=== PATIENT | female | born 1955 | race Caucasian/White ===

== ENCOUNTER → 2019-08-13 09:38 | Outpatient (BNVA) | payer MEDICARE, SELFPAY | PROVIDERS: PCP Nurse Practitioner Family; Visit Provider Nurse Practitioner Family | DX: S99.911A Unspecified injury of right ankle, initial encounter (principal); S81.012A Laceration without foreign body, left knee, initial encounter; X58.XXXA Exposure to other specified factors, initial encounter | CPT/HCPCS: 73610 ==

== ENCOUNTER → 2021-06-21 14:52 | Outpatient (BNVA) | payer MEDICARE, SELFPAY | PROVIDERS: PCP Nurse Practitioner Family; Visit Provider Family Medicine | DX: I25.10 Atherosclerotic heart disease of native coronary artery without angina pectoris (principal); N32.81 Overactive bladder; N39.3 Stress incontinence (female) (male); F41.1 Generalized anxiety disorder; I25.118 Atherosclerotic heart disease of native coronary artery with other forms of angina pectoris; F51.05 Insomnia due to other mental disorder; F99 Mental disorder, not otherwise specified; Z13.1 Encounter for screening for diabetes mellitus; Z13.220 Encounter for screening for lipoid disorders; Z13.6 Encounter for screening for cardiovascular disorders; Z63.6 Dependent relative needing care at home; I10 Essential (primary) hypertension | CPT/HCPCS: 80053; 80061 ==

== ENCOUNTER 2022-01-18 13:38 | Observation (INO) | payer MEDICARE, SELFPAY ==
--- NOTE | 2022-01-18 13:53 | ED_ITS ---
HPI - Chest Pain General: Chief Complaint: Chest Pain Stated Complaint: Chest pain Time Seen by Provider: 01/18/22 13:52 History of Present Illness: Ms. Moreno is a 66-year-old lady with significant past medical history of hypertension, former tobacco use, CAD with prior IN presenting to the emergency department due to chest pain. She reports no history of chest pain with exception of prior heart attack until 4 days ago. Symptom onset was random not correlating with any particular time or activity. Since 4 days ago she has had multiple times per day episodes of substernal chest pain with radiation of the arms and back associated with lightheadedness and shortness of breath and nausea. She describes this as feeling similar to her prior heart attack. Current symptom intensity is very mild however at worst symptoms were moderate to severe. Symptoms improved with nitro until today when they persisted. No other specific changes in health, exacerbating, or alleviating factors identified. Onset (ago): day(s) Timing of current episode: episodic Prior episodes: Yes Onset: during rest and during exertion Pain location: substernal Pain radiation: right arm, left arm and back Severity: moderate Quality: heaviness Relieving factors: nitroglycerin and rest Exacerbating factors: nothing Associated symptoms: Reports dyspnea, nausea and other Treatment prior to arrival: nitroglycerin Review of Systems General: Reports: 10 or more systems reviewed and unremarkable except in HPI and below Resp: Reports: dyspnea GI: Reports: nausea PFSH ED PFSH: Medical History CAD (coronary artery disease) Hypertension Surgical History H/O: hysterectomy Family History Mother Diabetes Cancer OVARIAN AND BRAIN CANCER Social History Smoking and tobacco status: former smoker Physical Exam Const: COMMON NORMALS: alert GENERAL APPEARANCE: cooperative and well developed HENMT: COMMON NORMALS: normocephalic and atraumatic HEAD & SCALP: normocephalic and atraumatic Eye: COMMON NORMALS: conjunctivae normal CONJUNCTIVA: Yes conjunctivae n ormal SCLERA: sclerae normal Neck/C-Spine: COMMON NORMALS: supple GENERAL: Yes trachea midline Resp: COMMON NORMALS: clear to auscultation bilaterally EFFORT & INSPECTION: Yes able to speak in complete sentences AUSCULTATION: clear to auscultation bilaterally Cardio: COMMON NORMALS: regular rate and regular rhythm RATE: regular rate RHYTHM: regular rhythm GI: COMMON NORMALS: Soft to palpation PALPATION: Yes Soft to palpation and No Tenderness to palpation present (GI) PERCUSSION: normal to percussion Extremity: GENERAL: Yes normal exam except as noted and No edema Neuro: COMMON NORMALS: moves all extremities SENSORIUM/ORIENTATION: Yes alert and No Orientation impaired Psych: COMMON NORMALS: mental status grossly normal and Normal thought process present THOUGHT PROCESS: Normal thought process present Course ED course: - Patient was seen and evaluated by me at bedside - Patient placed on cardiac monitors, IV access obtained - Initial evaluation notable for exam as above - Labs and xrays personally interpreted by me. EKG shows sinus rhythm with nonspecific QRS wave abnormalities. -Aspirin given. Analgesia given. - Labs notable for no significant hematologic abnormality. Metabolic panel with perhaps mild evidence of dehydration. Delta troponin negative. - Imaging notable for no lobar consolidation or pneumothorax. - Upon serial reexamination after treatment the patient was mildly improved - Based on patient history, evaluation, and testing as interpreted the most likely cause of the patient's condition is chest pain. Patient is not low risk by heart score. - The results of ED evaluation were discussed with the patient including plan for admission due to requirement for level of care not available if discharged to prevent significant worsening/deterioration. - Admitting service was contacted and Dr Martinez with the hospitalist service agreed to admit the patient - Patient was admitted without further deterioration or significant events. Note: Click bubbles or prepopulated traore in note writing are used for assistance with data collection and billing and are inherently more limited than narrative and other text portions of this note. Please use narrative for additional clinical history and defer to narrative/free test for any case of contradictory information. If information appears in only free text or click bubble it should be considered present or absent as reported. Please contact note residential mortgage underwriter for clarifications of clinical information or contradictory information. MDM is a brief summary, contradictory or erroneous seeming information should be clarified and full note should be reviewed. Vital Signs: Vital signs: Vital Signs Temperature 97.8 F 01/19/22 04:00 Pulse Rate 65 01/19/22 13:14 Respiratory Rate 14 01/19/22 13:14 Blood Pressure 118/74 01/19/22 13:14 Pulse Oximetry 98 01/19/22 13:14 MDM - Chest Pain Medical Decision Making 66-year-old lady presenting with chest pain. EKG without STEMI. Negative delta troponin. No clear cause identified on ED evaluation. Not low risk by heart score. Admitted for further cardiac evaluation. Medical Records I reviewed the patient's medical records. Lab Data I reviewed the patient's lab results. : 01/19/22 02:54 01/19/22 02:54 Radiology Impressions Chest X-Ray 01/18/22 14:02 IMPRESSION: No acute findings. Laboratory Results WBC 9.3 10^3/uL (4.0-10.0) 01/18/22 14:09 RBC 4.84 10^6/uL (4.1-5.3) 01/18/22 14:09 Hgb 14.1 g/dL (11.5-15.3) 01/18/22 14:09 Hct 42.4 % (37.0-47.0) 01/18/22 14:09 MCV 87.6 fl (81-99) 01/18/22 14:09 MCH 29.1 pg (28.0-34.0) 01/18/22 14:09 MCHC 33.3 g/dL (30.0-36.0) 01/18/22 14:09 RDW 13.1 % (12.1-15.1) 01/18/22 14:09 Plt Count 348 10^3/cmm (130-400) 01/18/22 14:09 MPV 10.3 fL (7.4-10.4) 01/18/22 14:09 Neut % (Auto) 61.0 % 01/18/22 14:09 Lymph % (Auto) 27.8 % 01/18/22 14:09 Sampson % (Auto) 7.5 % 01/18/22 14:09 Eos % (Auto) 2.4 % 01/18/22 14:09 Baso % (Auto) 1.0 % 01/18/22 14:09 Neut # (Auto) 5.66 10^3/uL (1.8-7.7) 01/18/22 14:09 Lymph # (Auto) 2.6 10^3/uL (0.8-4.8) 01/18/22 14:09 Sampson # (Auto) 0.7 10^3/uL (0.2-0.9) 01/18/22 14:09 Eos # (Auto) 0.2 10^3/uL (0.0-0.8) 01/18/22 14:09 Baso # (Auto) 0.1 10^3/uL (0.0-0.1) 01/18/22 14:09 Nucleated RBC % (auto) 0 % 01/18/22 14:09 Nucleated RBCs # 0.0 /100WBC 01/18/22 14:09 PT 12.30 SECONDS (12.1-14.9) 01/18/22 14:09 INR 0.89 (0.8-1.2) 01/18/22 14:09 APTT 30.2 SECONDS (23.9-36.7) 01/18/22 14:09 Sodium 136 mmol/L (136-145) 01/18/22 14:09 Potassium 3.8 mmol/L (3.5-5.1) 01/18/22 14:09 Chloride 100 mmol/L (98-107) 01/18/22 14:09 Carbon Dioxide 21 mmol/L (22-29) L 01/18/22 14:09 Anion Gap 18.8 (5-19) 01/18/22 14:09 BUN 17 mg/dL (8-23) 01/18/22 14:09 Creatinine 1.0 mg/dL (0.5-0.9) H 01/18/22 14:09 GFR Calculation 55.1 mL/min (90-130) L 01/18/22 14:09 Glucose 118 mg/dL (65-115) H 01/18/22 14:09 Estimat Average Glucose 140 01/18/22 14:09 Hemoglobin A1c 6.5 % (4.0-6.0) H 01/18/22 14:09 Calculated Osmolality 285 mOsm/kg (285-295) 01/18/22 14:09 Calcium 9.7 mg/dL (8.5-10.5) 01/18/22 14:09 Magnesium 2.3 mg/dL (1.7-2.3) 01/18/22 16:13 Total Bilirubin 0.3 mg/dL (0.15-1.2) 01/18/22 14:09 AST 18 U/L (0-32) 01/18/22 14:09 ALT 25 U/L (0-33) 01/18/22 14:09 Alkaline Phosphatase 80 IU/L (35-105) 01/18/22 14:09 Troponin T Baseline 6 ng/L (0-10) 01/18/22 14:09 Troponin T 120 Minute 6.34 ng/L (0-10) 01/18/22 16:13 Delta Troponin T 0.34 ABS# (0-10) 01/18/22 16:13 Troponin T Hi Sens 6Hr 6.00 ng/L (0-10) 01/18/22 19:51 Troponin T Hi Sens 6Hr Delta 0 ng/L (0-12) 01/18/22 19:51 NT-Pro-B Natriuret Pep 140 pg/mL (0-125) H 01/18/22 16:13 Total Protein 7.6 g/dL (6.6-8.7) 01/18/22 14:09 Albumin 4.4 g/dL (3.5-5.2) 01/18/22 14:09 Globulin 3.2 g/dL (1.3-4.6) 01/18/22 14:09 Triglycerides 191 mg/dL (0-150) H 01/18/22 16:13 Cholesterol 239 mg/dL (0-200) H 01/18/22 16:13 LDL Cholesterol, Calc 161 mg/dL (50-129) H 01/18/22 16:13 HDL Cholesterol 40 mg/dL (60-100) L 01/18/22 16:13 LDL/HDL Ratio 4.03 RATIO (0.00-3.22) H 01/18/22 16:13 Cholesterol/HDL Ratio 5.98 mg/dL (0.0-4.40) H 01/18/22 16:13 Lipase 53 U/L (13-60) 01/18/22 14:09 TSH 4.28 uIU/mL (0.27-4.20) H 01/18/22 16:13 Discharge Plan Discharge Patient Disposition: Placed in Observation Admit Provider: Brent Martinez Clinical Impression: Chest pain Discharge Diet: Diabetic Discharge Activity: Resume usual activity Coding Level of Care Code ED Gravure Press Set Up Operator for Chg Fwd Exam Comprehensive
[2022-01-18 13:58] VITALS: BP 144/70; PULSE 66; RESP 25; TEMP 36.6; O2SAT 96; BMI 29.4
--- NOTE | 2022-01-18 14:02 | ECG_ITS ---
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 Measurements Intervals Shirley Rate: 61 P: 51 MD: 140 QRS: 22 QRSD: 73 T: 58 QT: 380 QTc: 385 Interpretive Statements SINUS RHYTHM INTERPRETATION BASED ON A DEFAULT AGE OF 40 YEARS No previous ECG available for comparison Electronically Signed On 01-18-2022 16:53:14 CDT by Ridge Núñez M.D. [id number]
--- NOTE | 2022-01-18 14:02 | XRR_ITS ---
PROCEDURE INFORMATION: Exam: XR Chest Exam date and time: 01/18/2022 2:14 PM Age: 66 years old Clinical indication: Angina pectoris; Patient HX: Chest pain x 4 days. Has been taking nitro. Pains have gotten zone manager but has not subsided. Pain was at a 10 and is currently sitting at a 1; Additional info: Cp TECHNIQUE: Imaging protocol: Radiologic exam of the chest. Views: 1 view. COMPARISON: No relevant prior studies available. FINDINGS: Lungs: Calcified granuloma left lower lobe. The lungs are otherwise clear. No consolidation. Pleural spaces: Unremarkable. No pleural effusion. No pneumothorax. Heart/Mediastinum: Unremarkable. No cardiomegaly. Bones/joints: Unremarkable. XR/XR chest 1V portable [id number] IMPRESSION: No acute findings.
--- NOTE | 2022-01-18 14:05 | PC.NURSE ---
pt placed on continuous spo2, nibp, and cm.
[2022-01-18 14:17] LABS: Basophils # 0.1 10^3/uL (0.0-0.1); Eosinophils # 0.2 10^3/uL (0.0-0.8); Eosinophils % 2.4 %; Hematocrit 42.4 % (37.0-47.0); Hemoglobin 14.1 g/dL (11.5-15.3); Lymphocytes # 2.6 10^3/uL (0.8-4.8); Lymphocytes % 27.8 %; Mean Corpuscular HGB Conc 33.3 g/dL (30.0-36.0); Mean Corpuscular Hemoglobin 29.1 pg (28.0-34.0); Mean Corpuscular Volume 87.6 fl (81-99); Mean Platelet Volume 10.3 fL (7.4-10.4); Monocytes # 0.7 10^3/uL (0.2-0.9); Monocytes % 7.5 %; Neutrophils # 5.66 10^3/uL (1.8-7.7); Nucleated Red Blood Cells % 0 %; Platelet Count 348 10^3/cmm (130-400); Red Blood Count 4.84 10^6/uL (4.1-5.3); Red Cell Distribution Width 13.1 % (12.1-15.1); White Blood Count 9.3 10^3/uL (4.0-10.0)
[2022-01-18] MEDS: aspirin 81 mg Chew Tablet 324 MG PO (14:29)
[2022-01-18 14:37] LABS: INR 0.89 (0.8-1.2)
[2022-01-18 14:38] LABS: Partial Thromboplastin Time 30.2 SECONDS (23.9-36.7)
[2022-01-18 14:39] LABS: Troponin(5th) Baseline 6 ng/L (0-10)
[2022-01-18 14:48] LABS: Alanine Aminotransferase 25 U/L (0-33); Albumin Level 4.4 g/dL (3.5-5.2); Alkaline Phosphatase 80 IU/L (35-105); Anion Gap 18.8 (5-19); Aspartate Amino Transferase 18 U/L (0-32); Blood Urea Nitrogen 17 mg/dL (8-23); Calcium 9.7 mg/dL (8.5-10.5); Carbon Dioxide 21 mmol/L (22-29); Chloride 100 mmol/L (98-107); Globulin 3.2 g/dL (1.3-4.6); Glomerular Filtration Rate 55.1 mL/min (90-130); Glucose 118 mg/dL (65-115); Lipase 53 U/L (13-60); NT Pro B Type Natriuretic Pept 142 pg/mL (0-125); Osmolality Calculated 285 mOsm/kg (285-295); Potassium 3.8 mmol/L (3.5-5.1); Sodium 136 mmol/L (136-145); Total Bilirubin 0.3 mg/dL (0.15-1.2); Total Protein 7.6 g/dL (6.6-8.7)
--- NOTE | 2022-01-18 16:02 | ECG_ITS ---
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 Measurements Intervals Astor Rate: 51 P: 42 SD: 155 QRS: 3 QRSD: 79 T: 43 QT: 437 QTc: 404 Interpretive Statements SINUS BRADYCARDIA Compared to ECG 01/18/2022 13:57:16 Sinus rhythm no longer present Electronically Signed On 01-18-2022 16:59:10 CDT by Ridge Núñez M.D. [id number]
--- NOTE | 2022-01-18 16:05 | PC.PHAR ---
pt states she takes care of her own medications-pts phone number is [phone]-pt states she took no meds today
[2022-01-18] MEDS: lidocaine 2% viscous 15 ML, aluminum-mag hydrox-simethicon 30 ML, sucralfate oral liq 1 GM PO (16:35)
[2022-01-18] MEDS: fentaNYL 50 mcg/mL INJ 2mL IVP (16:36)
[2022-01-18 16:47] LABS: Troponin 5 2HR 6.34 ng/L (0-10)
[2022-01-18 17:11] LABS: Troponin 5 2HR Delta 0.34 ABS# (0-10)
--- NOTE | 2022-01-18 17:38 | PM.HP ---
Providers/Chief Complaint Primary Care Provider: Melani Pedro MD Chief Complaint: Chest pain History of Present Illness Miriam Moreno is a 66 year old female with a past medical history of angina, hypertension, who presents [facility] due to 4-day history of chest pain. Patient does not have for the last 4 days she has had substernal chest pain, radiating down the left shoulder, to her back, lasting a few minutes, becoming more severe, improving with nitroglycerin, she has had a history of angina in the past, has been prescribed nitroglycerin, he tells me that with the nitroglycerin the chest pain resolves. Denies any shortness of breath with exertion, denies any orthopnea, no paroxysmal nocturnal dyspnea, no diaphoresis. No recent travel, no history of DVT or pulmonary embolism. No calf pain, no calf swelling. Review of Systems Const: Denies: fever(s) Eyes: Denies: change in vision ENMT: Denies: nasal congestion Resp: Denies: dyspnea or non-productive cough GI: Denies: abdominal pain, nausea, vomiting or hematemesis Musc: Denies: back pain Skin/Breast: Denies: rash Medications/Allergies Home Medications Medication Instructions Recorded Confirmed Last Taken Type nitroglycerin 0.4 mg sublingual 0.4 mg SUBLINGUAL Q5M PRN #25 tab 06/21/21 01/18/22 01/17/22 19:00 Rx tablet oxybutynin chloride 5 mg 5 mg PO QAM 01/18/22 01/18/22 01/17/22 History tablet,extended release 24 hr sertraline 25 mg tablet (Zoloft) 25 mg PO QAM 01/18/22 01/18/22 01/17/22 History Allergies Allergy/AdvReac Type Severity Reaction Status Date / Time codeine Allergy Unknown UNKNOWN Verified 01/18/22 16:02 erythromycin base Allergy Unknown UNKNOWN Verified 01/18/22 16:02 Penicillins Allergy Unknown UNKNOWN Verified 01/18/22 16:02 amoxicillin Allergy unknown Verified 01/18/22 16:02 PFSH Acute PFSH: Medical History CAD (coronary artery disease) Hypertension Surgical History H/O: hysterectomy Family History Mother Diabetes Cancer OVARIAN AND BRAIN CANCER Social History Smoking and tobacco status: former smoker Vitals/I&O/Wt Last Vital Signs Temp 97.8 F 01/18/22 13:58 Pulse 66 01/18/22 13:58 Resp 25 H 01/18/22 13:58 BP 144/70 01/18/22 13:58 Pulse Ox 96 01/18/22 13:58 Weight last 48 hrs Weight 73.028 kg Physical Exam Const: COMMON NORMALS: no acute distress and patient oriented x3 HENMT: COMMON NORMALS: normocephalic HEAD & SCALP: normocephalic Eye: COMMON NORMALS: Equal, round and reactive pupils present and EOMs intact bilaterally Neck/C-Spine: COMMON NORMALS: no JVD Resp: COMMON NORMALS: normal respiratory effort, No retractions, No use of accessory muscles and clear to auscultation bilaterally AUSCULTATION: clear to auscultation bilaterally Cardio: COMMON NORMALS: no JVD, regular rate, regular rhythm, S1 normal heart sound present and S2 normal heart sound present RATE: regular rate RHYTHM: regular rhythm HEART SOUNDS: S1 normal heart sound present and S2 normal heart sound present GI: COMMON NORMALS: Normal to inspection, nondistended, normoactive bowel sounds present, Soft to palpation, non-tender, No hepatosplenomegaly present, no masses and no bruits PALPATION: Yes Soft to palpation and Yes No hepatosplenomegaly present Extremity: COMMON NORMALS: capillary refill normal, no clubbing, cyanosis or edema, no calf tenderness and no pedal edema Neuro: COMMON NORMALS: patient oriented x3, CN's II-XII intact bilaterally, moves all extremities and no focal motor deficits Psych: COMMON NORMALS: mental status grossly normal Data : 01/18/22 14:09 01/18/22 14:09 A&P Assessment and plan (1) Chest pain: Status: Acute (2) Hypertension: Status: Acute Qualifiers: Hypertension type: primary hypertension Qualified Code(s): I10 - Essential (primary) hypertension (3) MELA (generalized anxiety disorder): Status: Acute Plan Chest pain -Serial EKGs, serial troponins, telemetry monitoring -Monitor for chest pain -Aspirin, statin, Coreg -Nitro as needed for chest pain -TSH, mag, lipid panel -Cardiac echo -N.p.o. midnight, cardiac stress test tomorrow morning -Cardiac diet -Protonix GI prophylaxis -Lovenox for DVT prophylaxis -Full code Attestations Medical Necessity Statement*: Patient requires hospitalization, outpatient with observation, chest pain Coding Level of Care Code Acute Talent Acquisition Operations Manager for [facility] Fwd Diagnoses Chest pain R07.9 Hypertension I10 Hypertension type: primary hypertension MELA (generalized anxiety disorder) F41.1
[2022-01-18 18:27] LABS: Chol HDL Ratio 5.98 mg/dL (0.0-4.40); Cholesterol 239 mg/dL (0-200); HDL Cholesterol 40 mg/dL (60-100); LDL Cholesterol Calculated 161 mg/dL (50-129); LDL HDL Ratio 4.03 RATIO (0.00-3.22); Magnesium 2.3 mg/dL (1.7-2.3); NT Pro B Type Natriuretic Pept 140 pg/mL (0-125); Thyroid Stimulating Hormone 4.28 uIU/mL (0.27-4.20); Triglycerides 191 mg/dL (0-150)
--- NOTE | 2022-01-18 19:06 | PC.NURSE ---
REPORT GIVEN TO SUSANNAH PRIDE ASSUMED CARE.
--- NOTE | 2022-01-18 19:20 | PC.NURSE ---
Attempted report @192, no answer on med surg
[2022-01-18 19:36] VITALS: BP 134/85; PULSE 70; RESP 20; O2SAT 98
[2022-01-18 20:26] LABS: Troponin 5 6HR Delta 0 ng/L (0-12)
[2022-01-18 21:10] VITALS: BP 138/68; PULSE 53; PULSE 54; RESP 15; O2SAT 93
--- NOTE | 2022-01-18 21:10 | USCV_ITS ---
Miriam Moreno Age: 66 Gender: F : 1955 Exam Date: 01/18/2022 22:28 Ordering Phys: Brent Martinez MD Technologist: JEN [place]am [place] [facility] [place]: chest pain x 4 days. No hx cardiac intervention BP: 134 / 85 HR: 70 Rhythm: Sinus Technical Quality: Adequate MEASUREMENTS (Male / Female) Normal Values 2D ECHO LV Diastolic Diameter PLAX 4.5 cm 4.2 - 5.9 / 3.9 - 5.3 cm LV Systolic Diameter PLAX 2.9 cm IVS Diastolic Thickness 1.2 cm 0.6 - 1.0 / 0.6 - 0.9 cm IVS Systolic Thickness 1.7 cm LVPW Diastolic Thickness 1.0 cm 0.6 - 1.0 / 0.6 - 0.9 cm LVPW Systolic Thickness 1.3 cm LVOT Diameter 1.8 cm LV Ejection Fraction 2D Teich 66.1 % LV Ejection Fraction MOD 2C 56.5 % LV Ejection Fraction 2C AL 59.7 % LA Diameter 3.7 cm LA Width 4.4 cm LA Height 4.8 cm RA Width 4.3 cm RA Height 4.4 cm Aorta at Sinotubular Diameter 3.1 cm IVC Diameter 1.9 cm M-MODE Aortic Annulus Diameter 2.8 cm LA Ao Ratio MM 1.4 MV E Point Septal Separation 0.1 cm DOPPLER AV Peak Velocity 135.0 cm/s LVOT Peak Velocity 97.0 cm/s AV Area Cont Eq vti 2.2 cm squared AV Area Cont Eq pk 1.9 cm squared MV Peak Velocity 88.0 cm/s MV Area PHT 3.3 cm squared Mitral E to A Ratio 1.2 MV E' Velocity 47.5 cm/s Mitral E to MV E' Ratio 8.6 Mitral E to LV E' Lateral Ratio 6.4 Mitral E to LV E' Septal Ratio 13.1 TR Peak Velocity 244.6 cm/s TR Peak Gradient 23.9 mmHg TR Mean Velocity 251.3 cm/s TR Mean Gradient 25.3 mmHg TR Velocity Time Integral 0.0 cm TV Peak E Velocity 39.0 cm/s Right Atrial Pressure 5.0 mmHg Pulmonary Artery Systolic Pressu 28.9 mmHg PV Peak Velocity 95.0 cm/s RV Acceleration Time 0.2 s RV Ejection Time 0.5 s RV AcT/ET 0.4 FINDINGS Left Ventricle Normal left ventricular size. LV systolic function is normal with EF of 55-60%. No regional wall motion abnormalities. Right Ventricle The right ventricle is normal in size and function. Right Atrium The right atrium is normal in size. Left Atrium The left atrium is normal in size. Mitral Valve Structurally normal mitral valve without significant stenosis or prolapse. There is mild mitral regurgitation. Aortic Valve Structurally normal aortic valve without significant sclerosis or stenosis. There is no aortic regurgitation. Tricuspid Valve Structurally normal tricuspid valve without significant stenosis. Mild tricuspid regurgitation. Pulmonary artery systolic pressure is normal. Pulmonic Valve Not well visualized . Trace pulmonic regurgitation Pericardium Normal pericardium without effusion. Aorta Normal ascending aorta dimension. IVC CONCLUSIONS LV systolic function is normal with EF 55-60%. Mild mitral regurgitation is seen. Mild tricuspid regurgitation is seen. Trace pulmonic regurgitation No comparison studies are available. Og Velásquez MD (Electronically Signed) Final Date: 19 January 2022 10:23 S
[2022-01-18 22:00] VITALS: PULSE 58
[2022-01-18 22:12] LABS: Estmated Average Glucose 140; Hemoglobin A1C 6.5 % (4.0-6.0)
[2022-01-18] MEDS: carvedilol 3.125 mg Tablet PO (22:15)
[2022-01-18] MEDS: atorvastatin 40 mg Tablet PO (22:16)
[2022-01-18] MEDS: enoxaparin 40 mg/0.4 mL Syringe SUBCUT (22:16)
[2022-01-19] VITALS (7 sets, daily range): BP systolic 115–138; BP diastolic 59–74; PULSE 56–70; RESP 14–21; TEMP 36.6; O2SAT 93–98
[2022-01-19 03:07] LABS: Basophils # 0.1 10^3/uL (0.0-0.1); Basophils % 0.9 %; Eosinophils # 0.2 10^3/uL (0.0-0.8); Eosinophils % 2.7 %; Hematocrit 36.6 % (37.0-47.0); Hemoglobin 12.8 g/dL (11.5-15.3); Lymphocytes # 2.9 10^3/uL (0.8-4.8); Lymphocytes % 33.2 %; Mean Corpuscular Hemoglobin 29.2 pg (28.0-34.0); Mean Corpuscular Volume 83.4 fl (81-99); Mean Platelet Volume 10.9 fL (7.4-10.4); Monocytes # 0.5 10^3/uL (0.2-0.9); Monocytes % 6.2 %; Neutrophils # 4.96 10^3/uL (1.8-7.7); Neutrophils % 56.7 %; Nucleated Red Blood Cells % 0 %; Platelet Count 265 10^3/cmm (130-400); Red Blood Count 4.39 10^6/uL (4.1-5.3); Red Cell Distribution Width 13.2 % (12.1-15.1); White Blood Count 8.8 10^3/uL (4.0-10.0)
[2022-01-19 03:31] LABS: Albumin Level 3.9 g/dL (3.5-5.2); Alkaline Phosphatase 68 IU/L (35-105); Blood Urea Nitrogen 17 mg/dL (8-23); Calcium 8.7 mg/dL (8.5-10.5); Carbon Dioxide 20 mmol/L (22-29); Chloride 103 mmol/L (98-107); Globulin 3.1 g/dL (1.3-4.6); Glomerular Filtration Rate 71.3 mL/min (90-130); Glucose 99 mg/dL (65-115); Magnesium 2.2 mg/dL (1.7-2.3); Osmolality Calculated 282 mOsm/kg (285-295); Phosphorus 3.7 mg/dL (2.5-4.5); Sodium 135 mmol/L (136-145); Total Bilirubin 0.3 mg/dL (0.15-1.2)
[2022-01-19 03:37] LABS: Alanine Aminotransferase 24 U/L (0-33); Anion Gap 16.3 (5-19); Aspartate Amino Transferase 23 U/L (0-32); Potassium 4.3 mmol/L (3.5-5.1)
[2022-01-19] MEDS: oxybutynin chloride XL 5 MG TABLET PO (06:31)
[2022-01-19] MEDS: sertraline 50 mg Tablet 25 MG PO (06:31)
--- NOTE | 2022-01-19 06:59 | ECG_ITS ---
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 Interpretive Statements NAME OF STUDY: LEXISCAN SESTAMIBI STRESS TEST INDICATION: [Chest Pain] Procedure: At the baseline, the blood pressure was 114/72 mmHg with a heart rate of 59 bpm. The electrocardiogram showed sinus bradycardia, normal axis with normal ST and T's. The Lexiscan was infused over a period of 20 seconds. A total of 0.4 mg of Lexiscan was infused. The stress phase was continued for a total of 5 minutes. Heart rate was at the end of stress phase was 68 bpm and a blood pressure of 103/57 mmHg. The EKG at the peak infusion revealed since normal sinus rhythm with no significant ST-T wave changes. Sestamibi was injected 20 seconds after the Lexiscan infusion. Blood pressure at the end of recovery phase was 115/59 mmHg with a heart rate of 62 bpm. Conclusion: 1. Normal EKG response to Lexiscan infusion 2. No Lexiscan induced chest pain or cardiac arrhythmia. 3. Normal blood pressure and heart rate response. 4. Sestamibi/sestamibi perfusion scan pending; see separate report. Electronically Signed On 02-05-2022 12:06:50 CDT by Og Velásquez M.D. [id number]
[2022-01-19] MEDS: regadenoson 0.4 Mg/5 ml Syringe IVP (07:42)
[2022-01-19] MEDS: ondansetron 2 mg/ML SDV 2 mL 4 MG IVP (07:43)
[2022-01-19] MEDS: aspirin 81 mg EC Tablet PO (10:13)
[2022-01-19] MEDS: pantoprazole DR 40 mg Tablet PO (10:13)
--- NOTE | 2022-01-19 11:50 | PM.DCS ---
Discharge Providers Date of Admission: 01/18/22 21:10 Date of Discharge: January 19, 2022 Attending Provider at Admission: Brent Martinez MD Attending Provider at Discharge: Brent Martinez MD Primary Care Provider: Melani Pedro MD Diagnoses at Discharge Discharge Diagnosis (1) Chest pain: Status: Acute (2) Hypertension: Status: Acute Qualifiers: Hypertension type: primary hypertension Qualified Code(s): I10 - Essential (primary) hypertension (3) MELA (generalized anxiety disorder): Status: Acute Reason for Visit Reason for Visit: Chest pain Hospital Course Hospital Course This is a 66-year-old female who presents [facility] for chest pain, patient was admitted to [facility] chest pain, no significant ST-T wave changes seen on EKG, no significant delta troponin, no recurrent chest pain during her hospitalization, echocardiogram and work-up as below cardiac echocardiogram ?LV systolic function is normal with EF 55-60%. ?Mild mitral regurgitation is seen. ?Mild tricuspid regurgitation is seen. ?Trace pulmonic regurgitation ?No comparison studies are available. cardia stress test ?There is a small sized, fixed perfusion defect in apical lateral wall. 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 ? (calculated via Gated SPECT) ? Stress Image LV EF (%):? ? 74 ? Stress EDV (mL):68 ? TID:? 0.85 ? Stress ESV (mL):18 ?FUNCTIONAL FINDINGS: ?There is normal left ventricular systolic function. ?IMPRESSIONS ?1. Abnormal myocardial perfusion imaging with small sized prior infarct seen in ?the left circumflex artery territory. No evidence of ischemia is seen ?2. LV systolic function is normal -No recurrent chest pain, low probability stress test, but did show small sized prior infarct in the left circumflex territory however her EF is 55 to 60% -I have discharged on aspirin, statin, Coreg, nitro as needed for chest pain -If she were to have recurrent chest pain go to emergency room -Follow-up cardiology 1 week -She also has newly diagnosed type 2 diabetes mellitus, discharged on metformin, glucometer, with a follow-up with her primary care in 1 week Discharge Data Studies Completed and Pending Completed Studies During Hospitalization Category Date Time Status Sestamibi Stress Test Request Routine Exams 01/19/22 06:59 Draft XR chest 1V portable [id number] Stat Exams 01/18/22 14:02 Completed NM oh perf SPECT r/s* [id number] Routine Nuc Med 01/19/22 21:10 Completed CV. echo complete* [id number] Routine Ultrasound 01/18/22 21:10 Completed Pending at discharge Category Date Time Status Sestamibi Stress Test Request Routine Exams 01/18/22 21:10 Stop Req Complete Blood Count w/Auto AM LABS Lab 01/20/22 04:00 Ordered Complete Blood Count w/Auto AM LABS Lab 01/21/22 04:00 Ordered Comprehensive Metabolic Panel AM LABS Lab 01/20/22 04:00 Ordered Comprehensive Metabolic Panel AM LABS Lab 01/21/22 04:00 Ordered Magnesium AM LABS Lab 01/20/22 04:00 Ordered Magnesium AM LABS Lab 01/21/22 04:00 Ordered Phosphorus AM LABS Lab 01/20/22 04:00 Ordered Phosphorus AM LABS Lab 01/21/22 04:00 Ordered Radiology Impressions Chest X-Ray 01/18/22 14:02 IMPRESSION: No acute findings. Laboratory Results WBC 8.8 10^3/uL (4.0-10.0) 01/19/22 02:54 RBC 4.39 10^6/uL (4.1-5.3) 01/19/22 02:54 Hgb 12.8 g/dL (11.5-15.3) 01/19/22 02:54 Hct 36.6 % (37.0-47.0) L 01/19/22 02:54 MCV 83.4 fl (81-99) 01/19/22 02:54 MCH 29.2 pg (28.0-34.0) 01/19/22 02:54 MCHC 35.0 g/dL (30.0-36.0) D 01/19/22 02:54 RDW 13.2 % (12.1-15.1) 01/19/22 02:54 Plt Count 265 10^3/cmm (130-400) 01/19/22 02:54 MPV 10.9 fL (7.4-10.4) H 01/19/22 02:54 Neut % (Auto) 56.7 % 01/19/22 02:54 Lymph % (Auto) 33.2 % 01/19/22 02:54 Karnes % (Auto) 6.2 % 01/19/22 02:54 Eos % (Auto) 2.7 % 01/19/22 02:54 Baso % (Auto) 0.9 % 01/19/22 02:54 Neut # (Auto) 4.96 10^3/uL (1.8-7.7) 01/19/22 02:54 Lymph # (Auto) 2.9 10^3/uL (0.8-4.8) 01/19/22 02:54 Karnes # (Auto) 0.5 10^3/uL (0.2-0.9) 01/19/22 02:54 Eos # (Auto) 0.2 10^3/uL (0.0-0.8) 01/19/22 02:54 Baso # (Auto) 0.1 10^3/uL (0.0-0.1) 01/19/22 02:54 Nucleated RBC % (auto) 0 % 01/19/22 02:54 Nucleated RBCs # 0.0 /100WBC 01/19/22 02:54 PT 12.30 SECONDS (12.1-14.9) 01/18/22 14:09 INR 0.89 (0.8-1.2) 01/18/22 14:09 APTT 30.2 SECONDS (23.9-36.7) 01/18/22 14:09 Sodium 135 mmol/L (136-145) L 01/19/22 02:54 Potassium 4.3 mmol/L (3.5-5.1) 01/19/22 02:54 Chloride 103 mmol/L (98-107) 01/19/22 02:54 Carbon Dioxide 20 mmol/L (22-29) L 01/19/22 02:54 Anion Gap 16.3 (5-19) 01/19/22 02:54 BUN 17 mg/dL (8-23) 01/19/22 02:54 Creatinine 0.8 mg/dL (0.5-0.9) 01/19/22 02:54 GFR Calculation 71.3 mL/min (90-130) L 01/19/22 02:54 Glucose 99 mg/dL (65-115) 01/19/22 02:54 Estimat Average Glucose 140 01/18/22 14:09 Hemoglobin A1c 6.5 % (4.0-6.0) H 01/18/22 14:09 Calculated Osmolality 282 mOsm/kg (285-295) L 01/19/22 02:54 Calcium 8.7 mg/dL (8.5-10.5) 01/19/22 02:54 Phosphorus 3.7 mg/dL (2.5-4.5) 01/19/22 02:54 Magnesium 2.2 mg/dL (1.7-2.3) 01/19/22 02:54 Total Bilirubin 0.3 mg/dL (0.15-1.2) 01/19/22 02:54 AST 23 U/L (0-32) 01/19/22 02:54 ALT 24 U/L (0-33) 01/19/22 02:54 Alkaline Phosphatase 68 IU/L (35-105) 01/19/22 02:54 Troponin T Baseline 6 ng/L (0-10) 01/18/22 14:09 Troponin T 120 Minute 6.34 ng/L (0-10) 01/18/22 16:13 Delta Troponin T 0.34 ABS# (0-10) 01/18/22 16:13 Troponin T Hi Sens 6Hr 6.00 ng/L (0-10) 01/18/22 19:51 Troponin T Hi Sens 6Hr Delta 0 ng/L (0-12) 01/18/22 19:51 NT-Pro-B Natriuret Pep 140 pg/mL (0-125) H 01/18/22 16:13 Total Protein 7.0 g/dL (6.6-8.7) 01/19/22 02:54 Albumin 3.9 g/dL (3.5-5.2) 01/19/22 02:54 Globulin 3.1 g/dL (1.3-4.6) 01/19/22 02:54 Triglycerides 191 mg/dL (0-150) H 01/18/22 16:13 Cholesterol 239 mg/dL (0-200) H 01/18/22 16:13 LDL Cholesterol, Calc 161 mg/dL (50-129) H 01/18/22 16:13 HDL Cholesterol 40 mg/dL (60-100) L 01/18/22 16:13 LDL/HDL Ratio 4.03 RATIO (0.00-3.22) H 01/18/22 16:13 Cholesterol/HDL Ratio 5.98 mg/dL (0.0-4.40) H 01/18/22 16:13 Lipase 53 U/L (13-60) 01/18/22 14:09 TSH 4.28 uIU/mL (0.27-4.20) H 01/18/22 16:13 Vitals Last Vital Signs Temp 97.8 F 01/19/22 04:00 Pulse 65 01/19/22 09:19 Resp 21 H 01/19/22 04:00 BP 115/59 01/19/22 07:49 Pulse Ox 98 01/19/22 09:19 Discharge Plan Discharge Patient Disposition: Home Condition: Stable Prescriptions: New (DME) glucometer testing kit See Rx Instructions .Route .MEDSUPPLY Qty: 1 0RF Rx Instructions: Glucometer testing kit, check blood sugars 3 times daily Lancets #100 Strips #100 atorvastatin 40 mg Tablet 40 mg PO BEDTIME 30 Days Qty: 30 0RF aspirin 81 mg Tablet,Delayed Release (Dr/Ec) 81 mg PO DAILY 30 Days Qty: 30 0RF carvedilol 3.125 mg Tablet 3.125 mg PO BID 30 Days Qty: 60 0RF metformin 500 mg tablet 500 mg PO BID 30 Days Qty: 60 0RF Continued oxybutynin chloride 5 mg tablet extended release 24 hr 5 mg PO QAM 0RF sertraline [Zoloft] 25 mg tablet 25 mg PO QAM 0RF nitroglycerin 0.4 mg tablet, sublingual 0.4 mg sublingual Q5M PRN (Reason: chest pain) 30 Days Qty: 30 1RF Rx Instructions: do not exceed 3 doses per episode Discharge Orders: Discharge Order (Routine); Ordered 01/19/22 Ordered By: Brent Martinez Referrals: Guevara Hall MD [Physician] - 4-7 days Melani Pedro MD [Primary Care Provider] - 4-7 days Discharge Diet: Diabetic Discharge Activity: Resume usual activity Patient Instructions: Metformin (By mouth), Type 2 Diabetes in the Older Adult (DC), What to Do if Your Blood Sugar is Low (DC), Opioid Safety Activity Restrictions/Additional Instructions: - If you have recurrent chest pain please come back to the emergency room -Take aspirin, statin, Coreg as prescribed -If you have recurrent chest pain take nitroglycerin -Follow-up with cardiology -For your newly diagnosed type 2 diabetes mellitus, check blood sugars 3 times daily -Bring blood sugar logs with primary care physician office -If blood sugar greater than 500 call primary care -If blood sugar less than 60 drink or juice or eat a hard candy and go to the emergency room Discharge Attestations Time Spent in Discharge Care*: less than 30 min Quality Metrics Clinical Quality Measures [ No reported AMI, CVA or VTE this stay] Coding Level of Care Code Acute [facility] note Diagnoses Chest pain R07.9 Hypertension I10 Hypertension type: primary hypertension MELA (generalized anxiety disorder) F41.1
--- NOTE | 2022-01-19 21:10 | NMCV_ITS ---
NM oh perf SPECT r/s* [id number] JoshMiriam Age: 66 Gender: F : 1955 Exam Date: 01/19/2022 06:53 Ordering Phys: Brent Martinez MD Technologist: JOHNNIE Barger Exam Location: [facility] Indications: CHEST PAIN STRESS TEST Please see separate stress test report in [facility] for full findings IMAGE PROTOCOL Rest/Stress 1 Lexiscan Day Radiopharmaceutical Dose (mCi) Administration Site Administered by Rest: Tc-99m 10.7 IV JOHNNIE Burris Sestamibi Stress:Tc-99m 32.8 IV JOHNNIE Burris Sestamibi Rest: 19-Jan-2022 60 Discovery 630 Stress: 19-Jan-2022 30 Discovery 630 0.4mg Lexiscan. Images obtained in supine and prone position. SPECT RESULTS Technical Quality: Excellent Raw Data Analysis: Normal Image Corrections: No attenuation or motion correction applied Summed Stress Score: 2 Summed Rest Score: 5 Summed Difference Score: 0 PERFUSION FINDINGS There is a small sized, fixed perfusion defect in apical lateral wall. 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 IMPRESSIONS 1. Abnormal myocardial perfusion imaging with small sized prior infarct seen in the left circumflex artery territory. No evidence of ischemia is seen 2. LV systolic function is normal Og Velásquez MD (Electronically Signed) Final Date: 19 January 2022 10:15 S
== END 2022-01-19 13:45 | disposition home or self-care (01) ==
LOC: ER 17:24 → MEDSURG 21:22
PROVIDERS: Admitting Provider Family Medicine; Emergency Provider Emergency Medicine; PCP Family Medicine; Visit Provider Family Medicine
DX: R07.9 Chest pain, unspecified (principal); I10 Essential (primary) hypertension; F41.1 Generalized anxiety disorder; E11.9 Type 2 diabetes mellitus without complications; Z87.891 Personal history of nicotine dependence; I25.2 Old myocardial infarction; I25.10 Atherosclerotic heart disease of native coronary artery without angina pectoris
CPT/HCPCS: 36415; 71045; 78452; 80053; 80061; 83036; 83690; 83735; 83880; 84100; 84443; 84484; 85025; 85610; 85730; 93005; 93017; 93306; 94664; 96372; 96374; 96375; 99285; A9500; G0378; J1650; J2405; J2785; J3010

== ENCOUNTER → 2022-03-03 14:07 | Outpatient (BNVA) | payer MEDICARE, SELFPAY | PROVIDERS: PCP Family Medicine; Visit Provider Internal Medicine Cardiovascular Disease | DX: R07.9 Chest pain, unspecified (principal); E78.2 Mixed hyperlipidemia; E11.9 Type 2 diabetes mellitus without complications; F41.1 Generalized anxiety disorder | CPT/HCPCS: 99204 ==

== ENCOUNTER → 2022-03-09 09:35 | Outpatient (BNVA) | payer MEDICARE, SELFPAY | PROVIDERS: PCP Family Medicine; Visit Provider Family Medicine | DX: N32.81 Overactive bladder (principal); F41.1 Generalized anxiety disorder; E78.2 Mixed hyperlipidemia; I10 Essential (primary) hypertension; E03.9 Hypothyroidism, unspecified; E11.9 Type 2 diabetes mellitus without complications; R79.89 Other specified abnormal findings of blood chemistry; I25.10 Atherosclerotic heart disease of native coronary artery without angina pectoris; F51.05 Insomnia due to other mental disorder; F99 Mental disorder, not otherwise specified; F43.21 Adjustment disorder with depressed mood | CPT/HCPCS: 80048; 84439; 84443; 84481 ==

== ENCOUNTER 2022-03-12 05:24 | Emergency (ER) | payer MEDICARE, SELFPAY ==
[2022-03-12 05:25] VITALS: BP 156/72; PULSE 64; RESP 18; TEMP 36.8; O2SAT 90; BMI 30.9
--- NOTE | 2022-03-12 05:39 | W.ED.NAVMDI ---
Documented by User: Dwayne Cachorro DO Albaro 03/12/22 15:04 HPI - Nausea/Vomiting/Diarrhea General: Chief complaint: Nausea/Vomiting/Diarrhea Stated complaint: n/v Time Seen by Provider: 03/12/22 05:33 History of Present Illness: 66-year-old female who says she has been sick since 7 PM. She ate dinner, followed by some guacamole. She said shortly after the guacamole, she began to be sick at her stomach. She has epigastric pain, she has vomited several times, she says for 3 hours straight. She has had some diarrhea as well. No blood. No fever. No cough. MD elicited complaint: nausea and vomiting Pertinent past history: other Onset (ago): hour(s) Description of vomiting: food contents and watery Associated nausea: Yes Associated abdominal pain: Yes Location of pain: Epigastric Radiation: diffuse Pain consistency: constant Exacerbating factors: vomiting Relieving factors: none Associated symtoms: Reports dizziness and nausea; Denies chest pain, cough or short of breath Review of Systems Const: Denies: fever(s) ENMT: Denies: throat pain Card: Denies: chest pain Resp: Denies: dyspnea, productive cough or non-productive cough GI: Reports: abdominal pain, nausea, vomiting and diarrhea Neuro: Reports: dizziness PFSH ED PFSH: Medical History CAD (coronary artery disease) Hypertension Carvedilol discontinued due to orthostasis Surgical History H/O: hysterectomy Family History Mother Diabetes Cancer OVARIAN AND BRAIN CANCER Social History Smoking and tobacco status: former smoker Physical Exam Const: GENERAL APPEARANCE: cooperative, ill appearing and frail appearing HENMT: COMMON NORMALS: normocephalic HEAD & SCALP: normocephalic FACE & SINUS: face symmetric Eye: COMMON NORMALS: Equal, round and reactive pupils present and EOMs intact bilaterally PUPIL: Yes Equal, round and reactive pupils present Neck/C-Spine: COMMON NORMALS: no meningeal signs Lymph: LYMPHATIC: no lymphadenopathy noted Chest: CHEST: Yes Symmetrical chest wall rise Resp: COMMON NORMALS: normal respiratory effort, No use of accessory muscles and clear to auscultation bilaterally AUSCULTATION: clear to auscultation bilaterally Cardio: COMMON NORMALS: regular rate and regular rhythm RATE: regular rate RHYTHM: regular rhythm GI: COMMON NORMALS: Normal to inspection, nondistended, normoactive bowel sounds present and Soft to palpation PALPATION: Yes Soft to palpation and Yes Tenderness to palpation present (GI) Details: RUQ Neuro: KIMMY COMA SCALE: document GCS findings Kimmy coma scale eye opening: Spontaneous Kimmy coma scale verbal response: Orientated Kimmy coma scale motor response: Obey commands [place] coma scale total score: 15 MENINGEAL SIGNS: Yes no meningeal signs Course Vital Signs: Vital signs: Vital Signs Temperature 98.2 F 03/12/22 05:25 Pulse Rate 85 03/12/22 09:23 Respiratory Rate 15 03/12/22 05:57 Blood Pressure 151/75 03/12/22 09:23 Pulse Oximetry 96 03/12/22 09:23 Oxygen Delivery Me thod 03/12/22 05:25 MDM - Nausea/Vomiting/Diarrhea Medical Decision Making 66 year old female with epigastric and right upper quadrant pain with vomiting and diarrhea. Her white blood cell count is 18.6. Other labs not terribly remarkable. Urinanalysis is negative for uti. due to Leukocytosis, CT scan of the abdomen and pelvis is ordered. It is pending. She is checked out to the oncoming physician at shift change. Lab Data : 03/12/22 05:45 03/12/22 05:45 Radiology Impressions Abdomen/Pelvis CT 03/12/22 06:15 IMPRESSION: No definite acute findings. Small volume free fluid in the pelvis is nonspecific. COMMENTS: Consistent with the [place] [employer]'s Incidental Findings Committee white paper (J Am Riki Radiol 2018): Any incidental renal lesion less than 1 cm or classified as too small to characterize, or any incidental cystic renal lesion characterized as simple-appearing, is likely benign. No follow-up imaging is recommended for these lesions per consensus recommendations based on imaging criteria. Laboratory Results WBC 18.6 10^3/uL (4.0-10.0) H 03/12/22 05:45 RBC 4.40 10^6/uL (4.1-5.3) 03/12/22 05:45 Hgb 12.7 g/dL (11.5-15.3) 03/12/22 05:45 Hct 39.7 % (37.0-47.0) 03/12/22 05:45 MCV 90.2 fl (81-99) 03/12/22 05:45 MCH 28.9 pg (28.0-34.0) 03/12/22 05:45 MCHC 32.0 g/dL (30.0-36.0) 03/12/22 05:45 RDW 13.2 % (12.1-15.1) 03/12/22 05:45 Plt Count 336 10^3/cmm (130-400) 03/12/22 05:45 MPV 10.4 fL (7.4-10.4) 03/12/22 05:45 Neut % (Auto) 88.7 % 03/12/22 05:45 Lymph % (Auto) 6.5 % 03/12/22 05:45 [place] % (Auto) 3.7 % 03/12/22 05:45 Eos % (Auto) 0.1 % 03/12/22 05:45 Baso % (Auto) 0.5 % 03/12/22 05:45 Neut # (Auto) 16.47 10^3/uL (1.8-7.7) H 03/12/22 05:45 Lymph # (Auto) 1.2 10^3/uL (0.8-4.8) 03/12/22 05:45 [place]asper # (Auto) 0.7 10^3/uL (0.2-0.9) 03/12/22 05:45 Eos # (Auto) 0.0 10^3/uL (0.0-0.8) 03/12/22 05:45 Baso # (Auto) 0.1 10^3/uL (0.0-0.1) 03/12/22 05:45 Nucleated RBC % (auto) 0 % 03/12/22 05:45 Nucleated RBCs # 0.0 /100WBC 03/12/22 05:45 Sodium 141 mmol/L (136-145) 03/12/22 05:45 Potassium 4.7 mmol/L (3.5-5.1) 03/12/22 05:45 Chloride 103 mmol/L (98-107) 03/12/22 05:45 Carbon Dioxide 23 mmol/L (22-29) 03/12/22 05:45 Anion Gap 19.7 (5-19) H 03/12/22 05:45 BUN 17 mg/dL (8-23) 03/12/22 05:45 Creatinine 0.9 mg/dL (0.5-0.9) 03/12/22 05:45 GFR Calculation 62.3 mL/min (90-130) L 03/12/22 05:45 Glucose 212 mg/dL (65-115) H 03/12/22 05:45 Calculated Osmolality 300 mOsm/kg (285-295) H 03/12/22 05:45 Calcium 9.0 mg/dL (8.5-10.5) 03/12/22 05:45 Total Bilirubin 0.4 mg/dL (0.15-1.2) 03/12/22 05:45 AST 21 U/L (0-32) 03/12/22 05:45 ALT 29 U/L (0-33) 03/12/22 05:45 Alkaline Phosphatase 82 U/L (35-105) 03/12/22 05:45 C-Reactive Protein 3.2 mg/L (0.0-4.9) 03/12/22 05:45 Total Protein 7.1 g/dL (6.6-8.7) 03/12/22 05:45 Albumin 4.1 g/dL (3.5-5.2) 03/12/22 05:45 Globulin 3.0 g/dL (1.3-4.6) 03/12/22 05:45 Lipase 16 U/L (13-60) 03/12/22 05:45 Urine Color Yellow (Yellow) 03/12/22 08:05 Urine Appearance Clear (CLEAR) 03/12/22 08:05 Urine pH 7 (5-7) 03/12/22 08:05 Ur Specific Cody 1.005 (1.005-1.030) 03/12/22 08:05 Urine Protein Neg (Negative) 03/12/22 08:05 Urine Glucose (UA) 2+ (Normal) H 03/12/22 08:05 Urine Ketones 1+ (Negative) H 03/12/22 08:05 Urine Blood Neg (Negative) 03/12/22 08:05 Urine Nitrate Negative (Negative) 03/12/22 08:05 Urine Bilirubin Neg (Negative) 03/12/22 08:05 Urine Urobilinogen Norm mg/dL (Negative) 03/12/22 08:05 Ur Leukocyte Esterase Negative (Negative) 03/12/22 08:05 Discharge Plan Discharge Patient Disposition: Home Clinical Impression: Nausea & vomiting Condition: Stable Prescriptions: New ondansetron HCl 4 mg tablet 4 mg PO Q6H PRN (Reason: nausea and vomiting) Qty: 20 0RF No Action aspirin [Adult Low Dose Aspirin] 81 mg tablet,delayed release (DR/EC) 81 mg PO DAILY oxybutynin chloride 10 mg tablet extended release 24 hr 10 mg PO QAM 90 Days Qty: 90 1RF sertraline [Zoloft] 25 mg tablet 25 mg PO QAM 90 Days Qty: 90 1RF atorvastatin 20 mg tablet 20 mg PO DAILY 90 Days Qty: 90 1RF pantoprazole 40 mg tablet,delayed release (DR/EC) 40 mg PO BID 30 Days Qty: 60 0RF nitroglycerin 0.4 mg tablet, sublingual 0.4 mg sublingual Q5M PRN (Reason: chest pain) 30 Days Qty: 30 1RF Rx Instructions: do not exceed 3 doses per episode (DME) glucometer testing kit See Rx Instructions .Route .MEDSUPPLY Qty: 1 0RF Rx Instructions: Glucometer testing kit, check blood sugars 3 times daily Lancets #100 Strips #100 Discharge Orders: Discharge ED (Routine); Ordered 03/12/22 Ordered By: Axel Muhammad Referrals: Melani Pedro MD [Primary Care Provider] - Discharge Diet: Clear Liquid Discharge Activity: Increase activity as tolerated Patient Instructions: Opioid Safety Sign Out Sign Out Data: Patient Sign Out occurred on 03/12/22 at 06:55. Patient's care was discussed, and care was transferred from to xAel Muhammad DO. Coding Level of Care Code ED Conference Assistant for Chg Fwd Exam Comprehensive Documented by User: Axel Muhammad DO 03/18/22 06:53 HPI - Nausea/Vomiting/Diarrhea General: Chief complaint: Nausea/Vomiting/Diarrhea Stated complaint: n/v Time Seen by Provider: 03/12/22 05:33 PFSH ED PFSH: Medical History CAD (coronary artery disease) Hypertension Carvedilol discontinued due to orthostasis Surgical History H/O: hysterectomy Family History Mother Diabetes Cancer OVARIAN AND BRAIN CANCER Social History Smoking and tobacco status: former smoker Physical Exam Neuro: KIMMY COMA SCALE: document GCS findings Kimmy coma scale total score: 15 Course Vital Signs: Vital signs: Vital Signs Temperature 98.2 F 03/12/22 05:25 Pulse Rate 85 03/12/22 09:23 Respiratory Rate 15 03/12/22 05:57 Blood Pressure 151/75 03/12/22 09:23 Pulse Oximetry 96 03/12/22 09:23 Oxygen Delivery Me thod 03/12/22 05:25 MDM - Nausea/Vomiting/Diarrhea Medical Decision Making 66 year old female with epigastric and right upper quadrant pain with vomiting and diarrhea. Her white blood cell count is 18.6. Other labs not terribly remarkable. Urinanalysis is negative for uti. due to Leukocytosis, CT scan of the abdomen and pelvis is ordered. It is pending. She is checked out to the oncoming physician at shift change. Care assumed at change of shift. Mild elevation white count. Nausea and vomiting improved CT is unremarkable. Reviewed labs with the patient we will discharge patient home follow-up within the next few days with primary care, return if is further problems. Lab Data : 03/12/22 05:45 03/12/22 05:45 Radiology Impressions Abdomen/Pelvis CT 03/12/22 06:15 IMPRESSION: No definite acute findings. Small volume free fluid in the pelvis is nonspecific. COMMENTS: Consistent with the [place] [employer]'s Incidental Findings Committee white paper (J Am Riki Radiol 2018): Any incidental renal lesion less than 1 cm or classified as too small to characterize, or any incidental cystic renal lesion characterized as simple-appearing, is likely benign. No follow-up imaging is recommended for these lesions per consensus recommendations based on imaging criteria. Laboratory Results WBC 18.6 10^3/uL (4.0-10.0) H 03/12/22 05:45 RBC 4.40 10^6/uL (4.1-5.3) 03/12/22 05:45 Hgb 12.7 g/dL (11.5-15.3) 03/12/22 05:45 Hct 39.7 % (37.0-47.0) 03/12/22 05:45 MCV 90.2 fl (81-99) 03/12/22 05:45 MCH 28.9 pg (28.0-34.0) 03/12/22 05:45 MCHC 32.0 g/dL (30.0-36.0) 03/12/22 05:45 RDW 13.2 % (12.1-15.1) 03/12/22 05:45 Plt Count 336 10^3/cmm (130-400) 03/12/22 05:45 MPV 10.4 fL (7.4-10.4) 03/12/22 05:45 Neut % (Auto) 88.7 % 03/12/22 05:45 Lymph % (Auto) 6.5 % 03/12/22 05:45 [place] % (Auto) 3.7 % 03/12/22 05:45 Eos % (Auto) 0.1 % 03/12/22 05:45 Baso % (Auto) 0.5 % 03/12/22 05:45 Neut # (Auto) 16.47 10^3/uL (1.8-7.7) H 03/12/22 05:45 Lymph # (Auto) 1.2 10^3/uL (0.8-4.8) 03/12/22 05:45 [place] # (Auto) 0.7 10^3/uL (0.2-0.9) 03/12/22 05:45 Eos # (Auto) 0.0 10^3/uL (0.0-0.8) 03/12/22 05:45 Baso # (Auto) 0.1 10^3/uL (0.0-0.1) 03/12/22 05:45 Nucleated RBC % (auto) 0 % 03/12/22 05:45 Nucleated RBCs # 0.0 /100WBC 03/12/22 05:45 Sodium 141 mmol/L (136-145) 03/12/22 05:45 Potassium 4.7 mmol/L (3.5-5.1) 03/12/22 05:45 Chloride 103 mmol/L (98-107) 03/12/22 05:45 Carbon Dioxide 23 mmol/L (22-29) 03/12/22 05:45 Anion Gap 19.7 (5-19) H 03/12/22 05:45 BUN 17 mg/dL (8-23) 03/12/22 05:45 Creatinine 0.9 mg/dL (0.5-0.9) 03/12/22 05:45 GFR Calculation 62.3 mL/min (90-130) L 03/12/22 05:45 Glucose 212 mg/dL (65-115) H 03/12/22 05:45 Calculated Osmolality 300 mOsm/kg (285-295) H 03/12/22 05:45 Calcium 9.0 mg/dL (8.5-10.5) 03/12/22 05:45 Total Bilirubin 0.4 mg/dL (0.15-1.2) 03/12/22 05:45 AST 21 U/L (0-32) 03/12/22 05:45 ALT 29 U/L (0-33) 03/12/22 05:45 Alkaline Phosphatase 82 U/L (35-105) 03/12/22 05:45 C-Reactive Protein 3.2 mg/L (0.0-4.9) 03/12/22 05:45 Total Protein 7.1 g/dL (6.6-8.7) 03/12/22 05:45 Albumin 4.1 g/dL (3.5-5.2) 03/12/22 05:45 Globulin 3.0 g/dL (1.3-4.6) 03/12/22 05:45 Lipase 16 U/L (13-60) 03/12/22 05:45 Urine Color Yellow (Yellow) 03/12/22 08:05 Urine Appearance Clear (CLEAR) 03/12/22 08:05 Urine pH 7 (5-7) 03/12/22 08:05 Ur Specific Cody 1.005 (1.005-1.030) 03/12/22 08:05 Urine Protein Neg (Negative) 03/12/22 08:05 Urine Glucose (UA) 2+ (Normal) H 03/12/22 08:05 Urine Ketones 1+ (Negative) H 03/12/22 08:05 Urine Blood Neg (Negative) 03/12/22 08:05 Urine Nitrate Negative (Negative) 03/12/22 08:05 Urine Bilirubin Neg (Negative) 03/12/22 08:05 Urine Urobilinogen Norm mg/dL (Negative) 03/12/22 08:05 Ur Leukocyte Esterase Negative (Negative) 03/12/22 08:05 Discharge Plan Discharge Patient Disposition: Home Clinical Impression: Nausea & vomiting Condition: Stable Prescriptions: New ondansetron HCl 4 mg tablet 4 mg PO Q6H PRN (Reason: nausea and vomiting) Qty: 20 0RF No Action aspirin [Adult Low Dose Aspirin] 81 mg tablet,delayed release (DR/EC) 81 mg PO DAILY oxybutynin chloride 10 mg tablet extended release 24 hr 10 mg PO QAM 90 Days Qty: 90 1RF sertraline [Zoloft] 25 mg tablet 25 mg PO QAM 90 Days Qty: 90 1RF atorvastatin 20 mg tablet 20 mg PO DAILY 90 Days Qty: 90 1RF pantoprazole 40 mg tablet,delayed release (DR/EC) 40 mg PO BID 30 Days Qty: 60 0RF nitroglycerin 0.4 mg tablet, sublingual 0.4 mg sublingual Q5M PRN (Reason: chest pain) 30 Days Qty: 30 1RF Rx Instructions: do not exceed 3 doses per episode (DME) glucometer testing kit See Rx Instructions .Route .MEDSUPPLY Qty: 1 0RF Rx Instructions: Glucometer testing kit, check blood sugars 3 times daily Lancets #100 Strips #100 Discharge Orders: Discharge ED (Routine); Ordered 03/12/22 Ordered By: Axel Muhammad Referrals: Melani Pedro MD [Primary Care Provider] - Discharge Diet: Clear Liquid Discharge Activity: Increase activity as tolerated Patient Instructions: Opioid Safety Sign Out Sign Out Data: Patient Sign Out occurred on 03/12/22 at 06:55. Patient's care was discussed, and care was transferred from to Axel Muhammad DO. Coding Level of Care Code ED Conference Assistant for [place] Fwd Exam Comprehensive
[2022-03-12] MEDS: sodium chloride 0.9% 1,000 ML 999 ML IV ×2 (05:56→07:31)
[2022-03-12 05:57] VITALS: RESP 15
[2022-03-12] MEDS: fentaNYL 50 mcg/mL INJ 2mL IVP (05:57)
[2022-03-12] MEDS: ondansetron 2 mg/ML SDV 2 mL 4 MG IVP (05:58)
[2022-03-12 06:02] LABS: Basophils # 0.1 10^3/uL (0.0-0.1); Basophils % 0.5 %; Eosinophils % 0.1 %; Hematocrit 39.7 % (37.0-47.0); Hemoglobin 12.7 g/dL (11.5-15.3); Lymphocytes # 1.2 10^3/uL (0.8-4.8); Lymphocytes % 6.5 %; Mean Corpuscular Hemoglobin 28.9 pg (28.0-34.0); Mean Corpuscular Volume 90.2 fl (81-99); Mean Platelet Volume 10.4 fL (7.4-10.4); Monocytes # 0.7 10^3/uL (0.2-0.9); Monocytes % 3.7 %; Neutrophils # 16.47 10^3/uL (1.8-7.7); Neutrophils % 88.7 %; Nucleated Red Blood Cells % 0 %; Platelet Count 336 10^3/cmm (130-400); Red Cell Distribution Width 13.2 % (12.1-15.1); White Blood Count 18.6 10^3/uL (4.0-10.0)
--- NOTE | 2022-03-12 06:15 | CTR_ITS ---
PROCEDURE INFORMATION: Exam: CT Abdomen And Pelvis With Contrast Exam date and time: 03/12/2022 6:42 AM Age: 66 years old Clinical indication: Nausea and vomiting; Abdominal pain; Prior surgery; Surgery type: Hysto; Additional info: Ruq pain TECHNIQUE: Imaging protocol: Computed tomography of the abdomen and pelvis with contrast. Radiation optimization: All CT scans at this facility use at least one of these dose optimization techniques: automated exposure control; mA and/or kV adjustment per patient size (includes targeted exams where dose is matched to clinical indication); or iterative reconstruction. Contrast material: OMNI 350; Contrast volume: 80 ml; Contrast route: INTRAVENOUS (IV); COMPARISON: CR XR chest 1V portable [id number] 01/18/2022 2:14 PM RADIATION DOSE METRICS: Total DLP (mGy-cm): 691.65 FINDINGS: Lungs: Calcified granuloma in the left lung. Liver: Normal. No mass. Gallbladder and bile ducts: Normal. No calcified stones. No ductal dilation. Pancreas: Normal. No ductal dilation. Spleen: Normal. No splenomegaly. Adrenal glands: Normal. No mass. Kidneys and ureters: Left renal cysts. Tiny subcentimeter low-density lesions in the right kidney also likely reflect cysts. No hydronephrosis. Stomach and bowel: Colonic diverticulosis without evidence of diverticulitis. No bowel obstruction. Appendix: No evidence of appendicitis. Intraperitoneal space: Small volume free fluid in the pelvis. Vasculature: Mild burden of atherosclerotic plaque in the abdominal aorta and branch vessels. No aneurysm. Lymph nodes: Unremarkable. No enlarged lymph nodes. Urinary bladder: Unremarkable as visualized. Reproductive: Hysterectomy. Bones/joints: Unremarkable. No acute fracture. Soft tissues: Unremarkable. CT/CT abdomen pelvis w con* [id number] IMPRESSION: No definite acute findings. Small volume free fluid in the pelvis is nonspecific. COMMENTS: Consistent with the [employer]'s Incidental Findings Committee white paper (J Am Riki Radiol 2018): Any incidental renal lesion less than 1 cm or classified as too small to characterize, or any incidental cystic renal lesion characterized as simple-appearing, is likely benign. No follow-up imaging is recommended for these lesions per consensus recommendations based on imaging criteria.
[2022-03-12 06:24] LABS: Alanine Aminotransferase 29 U/L (0-33); Albumin Level 4.1 g/dL (3.5-5.2); Alkaline Phosphatase 82 U/L (35-105); Anion Gap 19.7 (5-19); Aspartate Amino Transferase 21 U/L (0-32); Blood Urea Nitrogen 17 mg/dL (8-23); C Reactive Protein 3.2 mg/L (0.0-4.9); Carbon Dioxide 23 mmol/L (22-29); Chloride 103 mmol/L (98-107); Glomerular Filtration Rate 62.3 mL/min (90-130); Glucose 212 mg/dL (65-115); Lipase 16 U/L (13-60); Osmolality Calculated 300 mOsm/kg (285-295); Potassium 4.7 mmol/L (3.5-5.1); Sodium 141 mmol/L (136-145); Total Bilirubin 0.4 mg/dL (0.15-1.2); Total Protein 7.1 g/dL (6.6-8.7)
[2022-03-12] MEDS: iohexol 350 mg/mL 100 mL Btl IV (06:58)
[2022-03-12 08:00] VITALS: BP 153/71; PULSE 64; O2SAT 98
[2022-03-12 08:10] LABS: Add Urine Microscopic? NO; Charge for UA Resulting for Rev
[2022-03-12 08:36] LABS: Bilirubin Urine Neg (Negative); Blood Urine Neg (Negative); Glucose Urine UA 2+ (Normal); Ketones Urine 1+ (Negative); Leukocyte Esterase Urine Negative (Negative); Nitrate Urine Negative (Negative); Protein Urine Neg (Negative); Specific Gravity, Urine 1.005 (1.005-1.030); Urine Appearance Clear (CLEAR); Urine Color Yellow (Yellow); Urobilinogen Urine Norm (Negative); pH Urine 7 (5-7)
[2022-03-12 09:23] VITALS: BP 151/75; PULSE 85; O2SAT 96
== END 2022-03-12 09:27 | disposition home or self-care (01) ==
PROVIDERS: Emergency Medicine; Emergency Provider Family Medicine; PCP Family Medicine
DX: R11.2 Nausea with vomiting, unspecified (principal); Z79.82 Long term (current) use of aspirin; I25.10 Atherosclerotic heart disease of native coronary artery without angina pectoris; I10 Essential (primary) hypertension; Z87.891 Personal history of nicotine dependence
CPT/HCPCS: 74177; 80053; 81003; 83690; 85025; 86140; 96361; 96374; 96375; 99285; J2405; J3010; J7030; Q9967

== ENCOUNTER → 2022-03-16 13:40 | Outpatient (BNVA) | payer MEDICARE, SELFPAY | PROVIDERS: PCP Family Medicine; Visit Provider Family Medicine | DX: K21.9 Gastro-esophageal reflux disease without esophagitis (principal); D72.829 Elevated white blood cell count, unspecified; D72.825 Bandemia | CPT/HCPCS: 85025 ==

== ENCOUNTER → 2022-07-04 08:46 | Outpatient (BNVA) | payer MEDICARE, SELFPAY | PROVIDERS: PCP Family Medicine; Visit Provider Family Medicine | DX: K21.9 Gastro-esophageal reflux disease without esophagitis (principal); E78.2 Mixed hyperlipidemia; N32.81 Overactive bladder; F41.1 Generalized anxiety disorder; E11.9 Type 2 diabetes mellitus without complications; I10 Essential (primary) hypertension; L65.9 Nonscarring hair loss, unspecified; R79.89 Other specified abnormal findings of blood chemistry; F43.21 Adjustment disorder with depressed mood | CPT/HCPCS: 80048; 83036; 84443 ==

== ENCOUNTER → 2022-09-14 12:38 | Outpatient (BNVA) | payer MEDICARE, SELFPAY | PROVIDERS: PCP Family Medicine; Visit Provider Nurse Practitioner Family | DX: I25.10 Atherosclerotic heart disease of native coronary artery without angina pectoris (principal); I10 Essential (primary) hypertension; Z79.82 Long term (current) use of aspirin; Z87.891 Personal history of nicotine dependence | CPT/HCPCS: 99213 ==

== ENCOUNTER → 2022-09-19 08:45 | Outpatient (BNVA) | payer MEDICARE, SELFPAY | PROVIDERS: PCP Family Medicine; Visit Provider Family Medicine | DX: E03.9 Hypothyroidism, unspecified (principal); N39.3 Stress incontinence (female) (male); N32.81 Overactive bladder; E11.9 Type 2 diabetes mellitus without complications; E78.2 Mixed hyperlipidemia; F41.1 Generalized anxiety disorder | CPT/HCPCS: 81000; 84439; 84443; 84481 ==

== ENCOUNTER → 2022-12-19 13:49 | Outpatient (BNVA) | payer MEDICARE, SELFPAY | PROVIDERS: PCP Family Medicine; Visit Provider Family Medicine | DX: N32.81 Overactive bladder (principal); E11.9 Type 2 diabetes mellitus without complications; E78.2 Mixed hyperlipidemia; I10 Essential (primary) hypertension; E03.9 Hypothyroidism, unspecified; F41.1 Generalized anxiety disorder; K21.9 Gastro-esophageal reflux disease without esophagitis | CPT/HCPCS: 80053; 80061; 83036; 84439; 84443; 84481 ==

== ENCOUNTER → 2023-06-20 13:38 | Outpatient (BNVA) | payer MEDICARE, SELFPAY | PROVIDERS: PCP Family Medicine; Visit Provider Family Medicine | DX: E03.9 Hypothyroidism, unspecified (principal); E11.9 Type 2 diabetes mellitus without complications; I10 Essential (primary) hypertension; N32.81 Overactive bladder; K21.9 Gastro-esophageal reflux disease without esophagitis; F41.1 Generalized anxiety disorder | CPT/HCPCS: 80048; 83036; 84439; 84443; 84481 ==

== ENCOUNTER → 2023-12-20 13:55 | Outpatient (BNVA) | payer MEDICARE, SELFPAY | PROVIDERS: PCP Family Medicine; Visit Provider Family Medicine | DX: E03.9 Hypothyroidism, unspecified (principal); I25.10 Atherosclerotic heart disease of native coronary artery without angina pectoris; N32.81 Overactive bladder; K21.9 Gastro-esophageal reflux disease without esophagitis; F41.1 Generalized anxiety disorder; I10 Essential (primary) hypertension; E11.9 Type 2 diabetes mellitus without complications; E78.2 Mixed hyperlipidemia; Z79.899 Other long term (current) drug therapy | CPT/HCPCS: 80048; 80061; 83036; 84443 ==

== ENCOUNTER 2024-01-12 23:10 | Observation (INO) | payer MEDICARE, SELFPAY ==
[2024-01-12 23:13] VITALS: BP 147/53; PULSE 57; RESP 16; TEMP 36.8; O2SAT 96; BMI 31.6
--- NOTE | 2024-01-12 23:29 | CTR_ITS ---
PROCEDURE INFORMATION: Exam: CT Abdomen And Pelvis With Contrast Exam date and time: 01/12/2024 11:40 PM Age: 68 years old Clinical indication: Abdominal pain; Localized; Right upper quadrant (ruq); Prior surgery; Surgery date: 6+ months; Surgery type: Hysterectomy; Patient HX: C/O ruq/epigastric pain with nausea. ; Additional info: Epi/ruq pain TECHNIQUE: Imaging protocol: Computed tomography of the abdomen and pelvis with contrast. Radiation optimization: All CT scans at this facility use at least one of these dose optimization techniques: automated exposure control; mA and/or kV adjustment per patient size (includes targeted exams where dose is matched to clinical indication); or iterative reconstruction. Contrast material: OMNI 350; Contrast volume: 100 ml; Contrast route: INTRAVENOUS (IV); COMPARISON: CT abdomen pelvis w con* [id number] 03/12/2022 6:42 AM RADIATION DOSE METRICS: Total DLP (mGy-cm): 664.52 FINDINGS: Lungs: Emphysematous changes. Liver: Hepatic steatosis. Gallbladder and biliary ducts: Mild gallbladder wall thickening, consider correlation with ultrasound. Pancreas: Normal. No ductal dilation. Spleen: Normal. No splenomegaly. Adrenal glands: Normal. No mass. Kidneys and ureters: Bilateral renal cysts, negative for follow-up advised. Stomach and bowel: Diverticulosis without diverticulitis. Appendix: No evidence of appendicitis. Intraperitoneal space: Unremarkable. No free air. No significant fluid collection. Vasculature: Unremarkable. No abdominal aortic aneurysm. Lymph nodes: Unremarkable. No enlarged lymph nodes. Urinary bladder: Unremarkable as visualized. Reproductive: Unremarkable as visualized. Bones/joints: Unremarkable. No acute fracture. Soft tissues: Unremarkable. CT/CT abdomen pelvis w con* [id number] IMPRESSION: 1. Mild gallbladder wall thickening, consider correlation with ultrasound. 2. Bilateral renal cysts, negative for follow-up advised. 3. Diverticulosis without diverticulitis. 4. Emphysematous changes. 5. Hepatic steatosis. COMMENTS: Consistent with the [employer]'s Incidental Findings Committee white paper (J Am Riki Radiol 2018): Any incidental renal lesion less than 1 cm or classified as too small to characterize, or any incidental cystic renal lesion characterized as simple-appearing, is likely benign. No follow-up imaging is recommended for these lesions per consensus recommendations based on imaging criteria.
[2024-01-12 23:37] LABS: Add Urine Microscopic? NO; Charge for UA Resulting for Rev
--- NOTE | 2024-01-12 23:38 | W.ED.ABDPA2 ---
Documented by User: ENDER Zhao 01/13/24 00:49 HPI - Abdominal Pain General: Chief Complaint: Abdominal Pain Stated Complaint: ABD PAIN Time Seen by Provider: 01/12/24 23:23 Source: patient Mode of arrival: EMS Limitations: no limitations History of Present Illness: Patient is a 68-year-old female past medical history of coronary artery disease who presents to the emergency department complaining of right upper quadrant abdominal pain beginning at 1800 tonight. 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 Pain is noted to radiate into the back. She soon after developed nausea and vomiting and states that she has noted blood in her vomit every time. No history of stomach ulcers or esophageal varices. It reportedly took EMS a while to get out to her, and on the way to the emergency department she was given Toradol and Zofran she reports improved her symptoms. She now states her pain is a 2/10. No specific alleviating or exacerbating factors noted at this time. She has never had this pain in the past. No history of abdominal surgeries and she notes that she specifically still has her gallbladder. MD elicited complaint: abdominal pain Pertinent past history: none Onset (ago): hour(s) Pain Consistency: other (Improving) Location: RUQ Radiation: back Exacerbating factors: nothing Relieving factors: nothing Associated Symptoms: Reports hematemesis, nausea and vomiting; Denies bloating, change in stool character, chills, constipation, diarrhea, dysuria, fever(s) and hematochezia Review of Systems General: Reports: 10 or more systems reviewed and unremarkable except in HPI and below Const: Denies: fever(s), chills, change in appetite, change in weight or diaphoresis ENMT: Denies: throat pain or hoarseness Card: Denies: chest pain, palpitations or lightheadedness Resp: Denies: dyspnea, productive cough or wheezing GI: Reports: abdominal pain, nausea, vomiting and hematemesis; Denies: diarrhea, constipation, bloating, change in stool character or hematochezia : Denies: flank pain, difficulty voiding, dysuria, urinary frequency or urinary urgency Musc: Reports: back pain; Denies: neck pain Skin/Breast: Denies: rash or new lesions Neuro: Denies: headache(s) or dizziness PFSH ED PFSH: Medical History Hypertension Carvedilol discontinued due to orthostasis CAD (coronary artery disease) Surgical History H/O: hysterectomy Family History Mother Diabetes Cancer OVARIAN AND BRAIN CANCER Social History Smoking and tobacco/nicotine status: former use of tobacco/nicotine Physical Exam Const: COMMON NORMALS: no acute distress, average body habitus, patient oriented x3, no limitations, healthy appearing, alert and well nourished GENERAL APPEARANCE: cooperative and comfortable ORIENTATION/CONSCIOUSNESS: Yes awake HENMT: COMMON NORMALS: normocephalic, atraumatic, hearing grossly normal bilaterally, external ears normal, Normal external nose present, Normal nasal mucous membranes and turbinates present and moist oral mucous membranes HEAD & SCALP: normocephalic and atraumatic NOSE: Normal external nose present and Normal nasal mucous membranes and turbinates present EXTERNAL EAR: Yes external ears normal Eye: COMMON NORMALS: Equal, round and reactive pupils present, EOMs intact bilaterally, conjunctivae normal and normal visual traore by confrontation CONJUNCTIVA: Yes conjunctivae normal PUPIL: Yes Equal, round and reactive pupils present Neck/C-Spine: COMMON NORMALS: full ROM, supple, no meningeal signs and no JVD Resp: COMMON NORMALS: normal respiratory effort, No retractions, No use of accessory muscles and clear to auscultation bilaterally AUSCULTATION: clear to auscultation bilaterally, no crackles, no rales, no rhonchi and no wheezes Cardio: COMMON NORMALS: no JVD, regular rate, regular rhythm, S1 normal heart sound present, S2 normal heart sound present, No gallops present (Cardio), No clicks present (Cardio), No murmurs present (Cardio), No rub (Cardio) and Peripheral pulses 2+ throughout RATE: regular rate RHYTHM: regular rhythm HEART SOUNDS: S1 normal heart sound present and S2 normal heart sound present PERIPHERAL PULSES: Peripheral pulses 2+ throughout GI: COMMON NORMALS: Normal to inspection, nondistended, normoactive bowel sounds present, Soft to palpation, No hepatosplenomegaly present and no masses AUSCULTATION: Yes normoactive bowel sounds PALPATION: Yes Soft to palpation, Yes Tenderness to palpation present (GI) (No Grant sign appreciated at this time) Details: RUQ, No Guarding due to palpation present (GI), No Rigid due to palpation and Yes No hepatosplenomegaly present RECTAL EXAM: deferred : COMMON NORMALS: Yes no CVA tenderness BLADDER/KIDNEY EXAM: Yes no CVA tenderness Back/Pelvis: COMMON NORMALS: no CVA tenderness Extremity: COMMON NORMALS: normal to inspection and full ROM Neuro: COMMON NORMALS: patient oriented x3, moves all extremities, no focal motor deficits and no sensory deficits noted SENSORIUM/ORIENTATION: Yes alert MENINGEAL SIGNS: Yes no meningeal signs Psych: COMMON NORMALS: mental status grossly normal, cooperative and speech normal SPEECH: Yes normal speech Skin: COMMON NORMALS: no rashes or lesions noted GENERAL SKIN EXAM: no rashes or lesions noted Course Vital Signs: Vital signs: Vital Signs Temperature 98.3 F 01/12/24 23:13 Pulse Rate 61 01/13/24 00:39 Respiratory Rate 16 01/13/24 00:39 Blood Pressure 116/51 01/13/24 00:39 Pulse Oximetry 92 01/13/24 00:39 Oxygen Delivery Me thod Room Air 01/12/24 23:13 MDM - Abdominal Pain Medical Decision Making Patient brought in by ambulance for acute onset of right upper quadrant pain occurring few hours prior to arrival. It took EMS a while to get out to patient's place and she states she had pain the entire time, however it did subside quite a bit after being given Toradol and Zofran by EMS personnel. She arrives with normal vitals. Her physical examination did reveal some right upper quadrant tenderness to palpation, however negative Grant sign. She does still have her gallbladder and appendix. She did note some hematemesis with her vomiting. Her lab work overall was unremarkable, no signs of urinary tract infection on urinalysis. CT of the abdomen pelvis revealed some gallbladder wall thickening, of which ultrasound the gallbladder was obtained. Care of patient passed to Dr. sEteban prior to ultrasound interpretation. At this time patient is rechecked and is sleeping, she did refuse pain and nausea medications here as she states she was asymptomatic. Lab Data 01/12/24 23:25 01/12/24 23:25 Labs/Radiology: Radiology Impressions Abdomen/Pelvis CT 01/12/24 23:29 IMPRESSION: 1. Mild gallbladder wall thickening, consider correlation with ultrasound. 2. Bilateral renal cysts, negative for follow-up advised. 3. Diverticulosis without diverticulitis. 4. Emphysematous changes. 5. Hepatic steatosis. COMMENTS: Consistent with the [employer]'s Incidental Findings Committee white paper (J Am Riki Radiol 2018): Any incidental renal lesion less than 1 cm or classified as too small to characterize, or any incidental cystic renal lesion characterized as simple-appearing, is likely benign. No follow-up imaging is recommended for these lesions per consensus recommendations based on imaging criteria. Gallbladder Ultrasound 01/13/24 00:28 IMPRESSION: Gallbladder sludge with wall thickening to 4 mm and pericholecystic edema, consistent with cholecystitis. Laboratory Results WBC 11.85 10^3/uL (3.29-11.43) H 01/12/24 23:25 RBC 3.73 10^6/uL (3.85-5.65) L 01/12/24 23:25 Hgb 11.10 g/dL (11.27-16.99) L 01/12/24 23:25 Hct 33.6 % (36-47) L 01/12/24 23:25 MCV 90.1 fl (85-98) 01/12/24 23:25 MCH 29.8 pg (27-33) 01/12/24 23:25 MCHC 33.0 g/dL (30-55) 01/12/24 23:25 RDW 13.9 % (12.1-15.1) 01/12/24 23:25 Plt Count 315 10^3/cmm (157-399) 01/12/24 23:25 MPV 10.5 fL (7.4-10.4) H 01/12/24 23:25 Neut % (Auto) 83.0 % 01/12/24 23:25 Lymph % (Auto) 10.5 % 01/12/24 23:25 Dewitt % (Auto) 5.1 % 01/12/24 23:25 Eos % (Auto) 0.4 % 01/12/24 23:25 Baso % (Auto) 0.6 % 01/12/24 23:25 Neut # (Auto) 9.82 10^3/uL (1.8-7.7) H 01/12/24 23:25 Lymph # (Auto) 1.3 10^3/uL (0.8-4.8) 01/12/24 23:25 Dewitt # (Auto) 0.6 10^3/uL (0.2-0.9) 01/12/24 23:25 Eos # (Auto) 0.1 10^3/uL (0.0-0.8) 01/12/24 23:25 Baso # (Auto) 0.1 10^3/uL (0.0-0.1) 01/12/24 23:25 Nucleated RBC % (auto) 0 % 01/12/24 23:25 Nucleated RBCs # 0.0 /100WBC 01/12/24 23:25 Sodium 143 mmol/L (136-145) 01/12/24 23:25 Potassium 3.5 mmol/L (3.5-5.1) 01/12/24 23:25 Chloride 109 mmol/L (98-107) H 01/12/24 23:25 Carbon Dioxide 22 mmol/L (22-29) 01/12/24 23:25 Anion Gap 15.5 (5-19) 01/12/24 23:25 BUN 16 mg/dL (8-23) 01/12/24 23:25 Creatinine 0.9 mg/dL (0.5-0.9) 01/12/24 23:25 GFR Calculation 61.9 mL/min (90-130) L 01/12/24 23:25 Glucose 139 mg/dL (65-115) H 01/12/24 23:25 Calculated Osmolality 299 mOsm/kg (285-295) H 01/12/24 23:25 Calcium 8.9 mg/dL (8.5-10.5) 01/12/24 23:25 Total Bilirubin 0.2 mg/dL (0.15-1.2) 01/12/24 23:25 AST 22 U/L (0-32) 01/12/24 23:25 ALT 27 U/L (0-33) 01/12/24 23:25 Alkaline Phosphatase 83 U/L (35-105) 01/12/24 23:25 Total Protein 6.7 g/dL (6.6-8.7) 01/12/24 23:25 Albumin 4.0 g/dL (3.5-5.2) 01/12/24 23:25 Globulin 2.7 g/dL (1.3-4.6) 01/12/24 23:25 Lipase 19 U/L (13-60) 01/12/24 23:25 Urine Color Yellow (Yellow) 01/12/24 23:25 Urine Appearance Clear (CLEAR) 01/12/24 23:25 Urine pH 5 (5-7) 01/12/24 23:25 Ur Specific Ulysses 1.025 (1.005-1.030) 01/12/24 23:25 Urine Protein Neg (Negative) 01/12/24 23:25 Urine Glucose (UA) Trace (Normal) H 01/12/24 23:25 Urine Ketones 1+ (Negative) H 01/12/24 23:25 Urine Blood Neg (Negative) 01/12/24 23:25 Urine Nitrate Negative (Negative) 01/12/24 23:25 Urine Bilirubin Neg (Negative) 01/12/24 23:25 Urine Urobilinogen Neg mg/dL (Negative) 01/12/24 23:25 Ur Leukocyte Esterase Negative (Negative) 01/12/24 23:25 All radiology interpretation(s) finalized by discharge Discharge Plan Discharge Patient Disposition: Admitted As Inpatient Clinical Impression: Cholecystitis Condition: Stable Prescriptions: No Action aspirin [Adult Low Dose Aspirin] 81 mg tablet,delayed release (DR/EC) 81 mg PO DAILY triamcinolone acetonide 0.1 % cream 1 applic topical BID PRN (Reason: itching) Qty: 454 0RF levothyroxine 25 mcg tablet 25 mcg PO DAILY 90 Days Qty: 90 2RF nitroglycerin 0.4 mg tablet, sublingual 0.4 mg sublingual Q5M PRN (Reason: chest pain) 30 Days Qty: 30 1RF Rx Instructions: do not exceed 3 doses per episode oxybutynin chloride 15 mg tablet extended release 24hr 15 mg PO QAM 90 Days Qty: 90 2RF pantoprazole 40 mg tablet,delayed release (DR/EC) 40 mg PO DAILY 90 Days Qty: 90 2RF sertraline [Zoloft] 25 mg tablet 25 mg PO QAM 90 Days Qty: 90 2RF (DME) glucometer testing kit See Rx Instructions .Route .MEDSUPPLY Qty: 1 0RF Rx Instructions: Glucometer testing kit, check blood sugars 3 times daily Lancets #100 Strips #100 Referrals: Melani Pedro MD [Primary Care Provider] - Coding Level of Care Code ED Associate Professor Of Pathology for Chg Fwd Documented by User: Silvia Esteban MD 01/13/24 01:38 HPI - Abdominal Pain General: Chief Complaint: Abdominal Pain Stated Complaint: ABD PAIN Time Seen by Provider: 01/12/24 23:23 [facility] ED PFSH: Medical History Hypertension Carvedilol discontinued due to orthostasis CAD (coronary artery disease) Surgical History H/O: hysterectomy Family History Mother Diabetes Cancer OVARIAN AND BRAIN CANCER Social History Smoking and tobacco/nicotine status: former use of tobacco/nicotine Course Vital Signs: Vital signs: Vital Signs Temperature 98.3 F 01/12/24 23:13 Pulse Rate 61 01/13/24 00:39 Respiratory Rate 16 01/13/24 00:39 Blood Pressure 116/51 01/13/24 00:39 Pulse Oximetry 92 01/13/24 00:39 Oxygen Delivery Me thod Room Air 01/12/24 23:13 MDM - Abdominal Pain Medical Decision Making Patient brought in by ambulance for acute onset of right upper quadrant pain occurring few hours prior to arrival. It took EMS a while to get out to patient's place and she states she had pain the entire time, however it did subside quite a bit after being given Toradol and Zofran by EMS personnel. She arrives with normal vitals. Her physical examination did reveal some right upper quadrant tenderness to palpation, however negative Grant sign. She does still have her gallbladder and appendix. She did note some hematemesis with her vomiting. Her lab work overall was unremarkable, no signs of urinary tract infection on urinalysis. CT of the abdomen pelvis revealed some gallbladder wall thickening, of which ultrasound the gallbladder was obtained. Care of patient passed to Dr. Esteban prior to ultrasound interpretation. At this time patient is rechecked and is sleeping, she did refuse pain and nausea medications here as she states she was asymptomatic. Patient presents here with abdominal pain ultrasound did show cholecystitis that spoken to surgeon on-call Dr. Phelps will admit at this time did give her Levaquin she is allergic to penicillins. Lab Data 01/12/24 23:25 01/12/24 23:25 Labs/Radiology: Radiology Impressions Abdomen/Pelvis CT 01/12/24 23:29 IMPRESSION: 1. Mild gallbladder wall thickening, consider correlation with ultrasound. 2. Bilateral renal cysts, negative for follow-up advised. 3. Diverticulosis without diverticulitis. 4. Emphysematous changes. 5. Hepatic steatosis. COMMENTS: Consistent with the [employer]'s Incidental Findings Committee white paper (J Am Riki Radiol 2018): Any incidental renal lesion less than 1 cm or classified as too small to characterize, or any incidental cystic renal lesion characterized as simple-appearing, is likely benign. No follow-up imaging is recommended for these lesions per consensus recommendations based on imaging criteria. Gallbladder Ultrasound 01/13/24 00:28 IMPRESSION: Gallbladder sludge with wall thickening to 4 mm and pericholecystic edema, consistent with cholecystitis. Laboratory Results WBC 11.85 10^3/uL (3.29-11.43) H 01/12/24 23:25 RBC 3.73 10^6/uL (3.85-5.65) L 01/12/24 23:25 Hgb 11.10 g/dL (11.27-16.99) L 01/12/24 23:25 Hct 33.6 % (36-47) L 01/12/24 23:25 MCV 90.1 fl (85-98) 01/12/24 23:25 MCH 29.8 pg (27-33) 01/12/24 23:25 MCHC 33.0 g/dL (30-55) 01/12/24 23:25 RDW 13.9 % (12.1-15.1) 01/12/24 23:25 Plt Count 315 10^3/cmm (157-399) 01/12/24 23:25 MPV 10.5 fL (7.4-10.4) H 01/12/24 23:25 Neut % (Auto) 83.0 % 01/12/24 23:25 Lymph % (Auto) 10.5 % 01/12/24 23:25 Dewitt % (Auto) 5.1 % 01/12/24 23:25 Eos % (Auto) 0.4 % 01/12/24 23:25 Baso % (Auto) 0.6 % 01/12/24 23:25 Neut # (Auto) 9.82 10^3/uL (1.8-7.7) H 01/12/24 23:25 Lymph # (Auto) 1.3 10^3/uL (0.8-4.8) 01/12/24 23:25 Dewitt # (Auto) 0.6 10^3/uL (0.2-0.9) 01/12/24 23:25 Eos # (Auto) 0.1 10^3/uL (0.0-0.8) 01/12/24 23:25 Baso # (Auto) 0.1 10^3/uL (0.0-0.1) 01/12/24 23:25 Nucleated RBC % (auto) 0 % 01/12/24 23:25 Nucleated RBCs # 0.0 /100WBC 01/12/24 23:25 Sodium 143 mmol/L (136-145) 01/12/24 23:25 Potassium 3.5 mmol/L (3.5-5.1) 01/12/24 23:25 Chloride 109 mmol/L (98-107) H 01/12/24 23:25 Carbon Dioxide 22 mmol/L (22-29) 01/12/24 23:25 Anion Gap 15.5 (5-19) 01/12/24 23:25 BUN 16 mg/dL (8-23) 01/12/24 23:25 Creatinine 0.9 mg/dL (0.5-0.9) 01/12/24 23:25 GFR Calculation 61.9 mL/min (90-130) L 01/12/24 23:25 Glucose 139 mg/dL (65-115) H 01/12/24 23:25 Calculated Osmolality 299 mOsm/kg (285-295) H 01/12/24 23:25 Calcium 8.9 mg/dL (8.5-10.5) 01/12/24 23:25 Total Bilirubin 0.2 mg/dL (0.15-1.2) 01/12/24 23:25 AST 22 U/L (0-32) 01/12/24 23:25 ALT 27 U/L (0-33) 01/12/24 23:25 Alkaline Phosphatase 83 U/L (35-105) 01/12/24 23:25 Total Protein 6.7 g/dL (6.6-8.7) 01/12/24 23:25 Albumin 4.0 g/dL (3.5-5.2) 01/12/24 23:25 Globulin 2.7 g/dL (1.3-4.6) 01/12/24 23:25 Lipase 19 U/L (13-60) 01/12/24 23:25 Urine Color Yellow (Yellow) 01/12/24 23:25 Urine Appearance Clear (CLEAR) 01/12/24 23:25 Urine pH 5 (5-7) 01/12/24 23:25 Ur Specific Ulysses 1.025 (1.005-1.030) 01/12/24 23:25 Urine Protein Neg (Negative) 01/12/24 23:25 Urine Glucose (UA) Trace (Normal) H 01/12/24 23:25 Urine Ketones 1+ (Negative) H 01/12/24 23:25 Urine Blood Neg (Negative) 01/12/24 23:25 Urine Nitrate Negative (Negative) 01/12/24 23:25 Urine Bilirubin Neg (Negative) 01/12/24 23:25 Urine Urobilinogen Neg mg/dL (Negative) 01/12/24 23:25 Ur Leukocyte Esterase Negative (Negative) 01/12/24 23:25 Discharge Plan Discharge Patient Disposition: Admitted As Inpatient Clinical Impression: Cholecystitis Condition: Stable Prescriptions: No Action aspirin [Adult Low Dose Aspirin] 81 mg tablet,delayed release (DR/EC) 81 mg PO DAILY triamcinolone acetonide 0.1 % cream 1 applic topical BID PRN (Reason: itching) Qty: 454 0RF levothyroxine 25 mcg tablet 25 mcg PO DAILY 90 Days Qty: 90 2RF nitroglycerin 0.4 mg tablet, sublingual 0.4 mg sublingual Q5M PRN (Reason: chest pain) 30 Days Qty: 30 1RF Rx Instructions: do not exceed 3 doses per episode oxybutynin chloride 15 mg tablet extended release 24hr 15 mg PO QAM 90 Days Qty: 90 2RF pantoprazole 40 mg tablet,delayed release (DR/EC) 40 mg PO DAILY 90 Days Qty: 90 2RF sertraline [Zoloft] 25 mg tablet 25 mg PO QAM 90 Days Qty: 90 2RF (DME) glucometer testing kit See Rx Instructions .Route .MEDSUPPLY Qty: 1 0RF Rx Instructions: Glucometer testing kit, check blood sugars 3 times daily Lancets #100 Strips #100 Referrals: Melani Pedro MD [Primary Care Provider] - Coding Level of Care Code ED Associate Professor Of Pathology for Reva Guadarrama
[2024-01-12 23:39] LABS: Basophils # 0.1 10^3/uL (0.0-0.1); Basophils % 0.6 %; Eosinophils # 0.1 10^3/uL (0.0-0.8); Eosinophils % 0.4 %; Hematocrit 33.6 % (36-47); Lymphocytes # 1.3 10^3/uL (0.8-4.8); Lymphocytes % 10.5 %; Mean Corpuscular Hemoglobin 29.8 pg (27-33); Mean Corpuscular Volume 90.1 fl (85-98); Mean Platelet Volume 10.5 fL (7.4-10.4); Monocytes # 0.6 10^3/uL (0.2-0.9); Monocytes % 5.1 %; Neutrophils # 9.82 10^3/uL (1.8-7.7); Nucleated Red Blood Cells % 0 %; Platelet Count 315 10^3/cmm (157-399); Red Blood Count 3.73 10^6/uL (3.85-5.65); Red Cell Distribution Width 13.9 % (12.1-15.1); White Blood Count 11.85 10^3/uL (3.29-11.43)
[2024-01-12] MEDS: iohexol 350 mg/mL 500 mL Btl (per mL) IV (23:42)
[2024-01-12 23:43] LABS: Bilirubin Urine Neg (Negative); Blood Urine Neg (Negative); Glucose Urine UA Trace (Normal); Ketones Urine 1+ (Negative); Leukocyte Esterase Urine Negative (Negative); Nitrate Urine Negative (Negative); Protein Urine Neg (Negative); Specific Gravity, Urine 1.025 (1.005-1.030); Urine Appearance Clear (CLEAR); Urine Color Yellow (Yellow); Urobilinogen Urine Neg (Negative); pH Urine 5 (5-7)
[2024-01-12 23:57] LABS: Alanine Aminotransferase 27 U/L (0-33); Alkaline Phosphatase 83 U/L (35-105); Anion Gap 15.5 (5-19); Aspartate Amino Transferase 22 U/L (0-32); Blood Urea Nitrogen 16 mg/dL (8-23); Calcium 8.9 mg/dL (8.5-10.5); Carbon Dioxide 22 mmol/L (22-29); Chloride 109 mmol/L (98-107); Globulin 2.7 g/dL (1.3-4.6); Glomerular Filtration Rate 61.9 mL/min (90-130); Glucose 139 mg/dL (65-115); Lipase 19 U/L (13-60); Osmolality Calculated 299 mOsm/kg (285-295); Potassium 3.5 mmol/L (3.5-5.1); Sodium 143 mmol/L (136-145); Total Bilirubin 0.2 mg/dL (0.15-1.2); Total Protein 6.7 g/dL (6.6-8.7)
[2024-01-13] VITALS (31 sets, daily range): BP systolic 91–163; BP diastolic 48–91; PULSE 53–67; RESP 14–18; TEMP 36.3–36.9; O2SAT 92–100; BMI 31.3
--- NOTE | 2024-01-13 00:28 | USR_ITS ---
PROCEDURE INFORMATION: Exam: US Abdomen, Limited; Right Upper Quadrant Exam date and time: 01/13/2024 1:01 AM Age: 68 years old Clinical indication: Abdominal pain; Acute; Additional info: Ruq pain TECHNIQUE: Imaging protocol: Real time ultrasound of the abdomen with image documentation. Limited exam focused on the right upper quadrant. COMPARISON: CT abdomen pelvis w con* [id number] 01/12/2024 11:40 PM FINDINGS: Liver: Normal. No masses. Gallbladder: Gallbladder sludge with wall thickening to 4 mm and pericholecystic edema, consistent with cholecystitis. Biliary ducts: Normal. No stones. No dilation. Pancreas: Visualized pancreas is unremarkable. Right kidney: Normal. No mass. No hydronephrosis. US/US gall bladder [id number] IMPRESSION: Gallbladder sludge with wall thickening to 4 mm and pericholecystic edema, consistent with cholecystitis.
[2024-01-13] MEDS: levofloxacin-dextrose 5 % 750 MG/150 ML PREMIX 100 MG IV (01:46)
[2024-01-13] MEDS: sodium chloride 0.9% 1,000 ML 100 ML IV ×2 (03:16→14:37)
--- NOTE | 2024-01-13 07:40 | P.HP_ITS ---
Providers/Chief Complaint 2 Admitting Physician: Octavio Phelps MD Primary Care Provider: Melani Pedro MD Chief Complaint: ABD PAIN History of Present Illness Miriam Moreno is a 68 year old female who presents to the hospital complaining of severe right upper quadrant abdominal pain, this was sudden in nature. It was accompanied with nausea and vomiting. She also had 1 episode of diarrhea. Patient states she has never had these happen in the past. After admission with antibiotic treatment and pain control her pain has significantly improved. Review of Systems 2 General: Reports: 10 or more systems reviewed and unremarkable except in HPI and below Medications/Allergies Home Medications Medication Instructions Recorded Confirmed Last Taken Type glucometer testing kit #1 ea 01/19/22 01/13/24 Unknown Rx aspirin 81 mg tablet,delayed 81 mg PO DAILY 03/03/22 01/13/24 Unknown History release (Adult Low Dose Aspirin) triamcinolone acetonide 0.1 % 1 applic topical BID PRN itching 03/21/23 01/13/24 Unknown Rx topical cream #454 grams levothyroxine 25 mcg tablet 25 mcg PO DAILY 90 days #90 tabs 12/20/23 01/13/24 Unknown Rx nitroglycerin 0.4 mg sublingual 0.4 mg sublingual Q5M PRN chest 12/20/23 01/13/24 Unknown Rx tablet pain 30 days #30 tabs oxybutynin chloride 15 mg 15 mg PO QAM 90 days #90 tabs 12/20/23 01/13/24 Unknown Rx tablet,extended release 24 hr pantoprazole 40 mg tablet,delayed 40 mg PO DAILY 90 days #90 tabs 12/20/23 01/13/24 Unknown Rx release sertraline 25 mg tablet (Zoloft) 25 mg PO QAM 90 days #90 tabs 12/20/23 01/13/24 Unknown Rx ascorbic acid (vitamin C) 500 mg 500 mg PO DAILY 01/13/24 01/13/24 Unknown History tablet (Vitamin C) cyanocobalamin (vitamin B-12) 1,000 mcg PO DAILY 01/13/24 01/13/24 Unknown History 1,000 mcg tablet,extended release (Vitamin B-12 ER) diphenhydramine HCl 50 mg capsule 50 mg PO TID PRN Allergic Reaction 01/13/24 01/13/24 Unknown History loperamide 2 mg tablet 2 mg PO Q6H PRN Diarrhea 01/13/24 01/13/24 Unknown History potassium 99 mg tablet 99 mg PO DAILY 01/13/24 01/13/24 Unknown History Allergies Allergy/AdvReac Type Severity Reaction Status Date / Time codeine Allergy Unknown UNKNOWN Verified 12/20/23 07:46 erythromycin base Allergy Unknown UNKNOWN Verified 12/20/23 07:46 Penicillins Allergy Unknown UNKNOWN Verified 12/20/23 07:46 amoxicillin Allergy unknown Verified 12/20/23 07:46 Tetracyclines Allergy ADR-Dizzine Verified 12/20/23 07:46 ss PFSH Acute 2 PFSH: Medical History Hypertension Carvedilol discontinued due to orthostasis CAD (coronary artery disease) Surgical History H/O: hysterectomy Family History Mother Diabetes Cancer OVARIAN AND BRAIN CANCER Social History Smoking and tobacco/nicotine status: former use of tobacco/nicotine Vitals/I&O/Wt Last Vital Signs Temp 98.4 F 01/13/24 05:24 Pulse 67 01/13/24 05:24 Resp 15 01/13/24 05:24 BP 127/64 01/13/24 05:24 Pulse Ox 95 01/13/24 05:24 O2 Del Method Room Air 01/13/24 05:24 01/12/24 01/13/24 01/13/24 22:59 06:59 14:59 Intake Total 150 / 150 Balance 150 / 150 Weight last 48 hrs Weight 174 lb Weight 171 lb 4.8 oz Weight 173 lb Physical Exam 2 Narrative: General : Patient is well developed , no acute distress, oriented x3 Head : Normal cephalic, a-traumatic. Nose : Mucous membranes are without erythema. Lungs : Equal chest rise bilaterally, no use of accessory muscles, trachea is midline. CV : Rate and rhythm are normal. Abdomen : Soft, there is tenderness in the right upper quadrant. Extremities : No edema. Upper extremities are normal bilaterally. Back : non-tender to palpation, no CVA tenderness. Data 01/12/24 23:25 01/12/24 23:25 A&P Assessment and plan (1) Cholecystitis: Plan After a complete history, physical examination and review of all available clinical data I have offered the patient laparoscopic cholecystectomy for acute cholecystitis. This diagnosis is supported by acute presentation of symptoms, mild elevation of the white count, Grant sign and imaging findings. All the risk and benefits of the procedure were discussed with the patient including the risks of bleeding, infection, damage to surrounding structures including liver, duodenum, colon, risk of injuring bile ducts requiring extensive surgery at higher level of care facility, risk of retained stones, bile leak, bilioma, need for subtotal cholecystectomy, hernia and wound related complications, need to conversion to open procedure. Patient shows understanding and would like to proceed. Lap radha will be booked for the next available or day, additional information regarding the procedure will be given to the patient in printed format Attestations 2 Medical Necessity Statement*: Patient will likely be discharged today after surgery Coding Level of Care Code Acute Code for [facility] Diagnoses Cholecystitis K81.9
--- NOTE | 2024-01-13 08:37 | ANES.PREANE2 ---
Pre-Anesthetic Assessment Height/Weight: Height 1.57 m Weight 78.925 kg Temp Pulse Resp BP Pulse Ox O2 Del Method 97.4 F L 53 L 17 132/65 100 Room Air 01/13/24 08:35 01/13/24 08:35 01/13/24 08:35 01/13/24 08:35 01/13/24 08:35 01/13/24 08:35 Operation Date: 01/13/24 08:40 Proposed Procedures p Laparoscopic Cholecystectomy(Right) - Octavio Phelps MD Familial anesthetic complications: wakes up violent Was Beta Jeyson taken within 24 hours: N/A Was Clonidine taken within 24 hours: N/A Last intake: > 8 hrs Social No alcohol and No tobacco quit smoking 20 years ago Exam alert, oriented x 3, clear to auscultation bilaterally and regular rate & rhythm Airway Dentition: chipped (2 broken) and other (crowns) CV/HEM Stable Angina and Hypertension GI Gastroesophageal Reflux Disease Metabolic Diabetes Mellitus, Hyperlipidemia and Thyroid Disease Anesthetic Plan ASA status: 3 Anesthesia: General Risk of > 500 ml blood loss (7ml/kg in children): No Medications/Allergies Home Medications Medication Instructions Recorded Confirmed Last Taken Type glucometer testing kit #1 ea 01/19/22 01/13/24 Unknown Rx aspirin 81 mg tablet,delayed 81 mg PO DAILY 03/03/22 01/13/24 Unknown History release (Adult Low Dose Aspirin) triamcinolone acetonide 0.1 % 1 applic topical BID PRN itching 03/21/23 01/13/24 Unknown Rx topical cream #454 grams levothyroxine 25 mcg tablet 25 mcg PO DAILY 90 days #90 tabs 12/20/23 01/13/24 Unknown Rx nitroglycerin 0.4 mg sublingual 0.4 mg sublingual Q5M PRN chest 12/20/23 01/13/24 Unknown Rx tablet pain 30 days #30 tabs oxybutynin chloride 15 mg 15 mg PO QAM 90 days #90 tabs 12/20/23 01/13/24 Unknown Rx tablet,extended release 24 hr pantoprazole 40 mg tablet,delayed 40 mg PO DAILY 90 days #90 tabs 12/20/23 01/13/24 Unknown Rx release sertraline 25 mg tablet (Zoloft) 25 mg PO QAM 90 days #90 tabs 12/20/23 01/13/24 Unknown Rx ascorbic acid (vitamin C) 500 mg 500 mg PO DAILY 01/13/24 01/13/24 Unknown History tablet (Vitamin C) cyanocobalamin (vitamin B-12) 1,000 mcg PO DAILY 01/13/24 01/13/24 Unknown History 1,000 mcg tablet,extended release (Vitamin B-12 ER) diphenhydramine HCl 50 mg capsule 50 mg PO TID PRN Allergic Reaction 01/13/24 01/13/24 Unknown History loperamide 2 mg tablet 2 mg PO Q6H PRN Diarrhea 01/13/24 01/13/24 Unknown History potassium 99 mg tablet 99 mg PO DAILY 01/13/24 01/13/24 Unknown History Allergies Allergy/AdvReac Type Severity Reaction Status Date / Time codeine Allergy Unknown UNKNOWN Verified 12/20/23 07:46 erythromycin base Allergy Unknown UNKNOWN Verified 12/20/23 07:46 Penicillins Allergy Unknown UNKNOWN Verified 12/20/23 07:46 amoxicillin Allergy unknown Verified 12/20/23 07:46 Tetracyclines Allergy ADR-Dizzine Verified 12/20/23 07:46 ss Current Medications Generic Name Dose Route Start Last Admin Trade Name Freq PRN Reason Stop Dose Admin Sodium Chloride 1,000 mls @ 100 mls/hr 01/13/24 02:25 01/13/24 03:16 Sodium Chloride 0.9% IV 100 mls/hr .Q10H MORGAN Administration PFSH Anesthesia Medical History Hypertension Carvedilol discontinued due to orthostasis CAD (coronary artery disease) Surgical History H/O: hysterectomy Family History Mother Diabetes Cancer OVARIAN AND BRAIN CANCER Social History Smoking and tobacco/nicotine status: former use of tobacco/nicotine Data Anesthesia 01/12/24 23:25 01/12/24 23:25 Short CBC 01/12/24 Range/Units 23:25 WBC 11.85 H (3.29-11.43) 10^3/uL Hgb 11.10 L (11.27-16.99) g/dL Hct 33.6 L (36-47) % MCV 90.1 (85-98) fl Plt Count 315 (157-399) 10^3/cmm Neut % (Auto) 83.0 % Neut # (Auto) 9.82 H (1.8-7.7) 10^3/uL BMP 01/12/24 23:25 Sodium 143 Potassium 3.5 Chloride 109 H Carbon Dioxide 22 BUN 16 Creatinine 0.9 Glucose 139 H Calcium 8.9 Liver Function 01/12/24 Range/Units 23:25 Total Bilirubin 0.2 (0.15-1.2) mg/dL AST 22 (0-32) U/L ALT 27 (0-33) U/L Alkaline Phosphatase 83 (35-105) U/L Albumin 4.0 (3.5-5.2) g/dL Urine 01/12/24 Range/Units 23:25 Urine Color Yellow (Yellow) Urine Appearance Clear (CLEAR) Urine pH 5 (5-7) Ur Specific [place] 1.025 (1.005-1.030) Urine Protein Neg (Negative) Urine Glucose (UA) Trace H (Normal) Urine Ketones 1+ H (Negative) Urine Nitrate Negative (Negative) Urine Bilirubin Neg (Negative) Ur Leukocyte Esterase Negative (Negative) Cardiac Studies: Echocardiogram 01/18/22 Sestamibi Stress Test (Cardiology) 01/19/22
[2024-01-13] MEDS: metroNIDAZOLE IV 500 MG/100 ML PREMIX 100 MG IV ×2 (08:44→14:35)
[2024-01-13] MEDS: lidocaine-epi 1% 20 mL INJ 10 ML INJECTION (09:12)
[2024-01-13] MEDS: BUPivacaine 0.25% INJ 10 mL INJECTION (09:12)
--- NOTE | 2024-01-13 09:48 | PC.NURSE ---
to or via stretcher at 0810
--- NOTE | 2024-01-13 10:34 | PM.OP ---
Operative Report Date of procedure: January 13, 2024 Pre-op diagnosis: Acute cholecystitis Post-op diagnosis: Acute cholecystitis Post-op findings: Inflamed gallbladder, normal biliary anatomy, posterior arterial branch from the liver bed to the gallbladder Procedure done: laparoscopic cholecystectomy Specimens removed/disposition: Gallbladder Surgeon: Octavio Phelps MD Hotbed Lever Operator: KLAUDIA OR Staff Estimated blood loss: 15 Complications: none apparent Brief History: 68-year-old female who presents to the hospital with acute cholecystitis verified by imaging, after discussion of all risk and benefits we decided to proceed with laparoscopic possible open cholecystectomy. Procedure: Patient was brought into the OR, she was placed in a supine position. General anesthesia was given. The abdomen was prepped and draped in the usual sterile fashion. Timeout was done. The abdomen was accessed with an open technique in the infraumbilical position via 15 mm incision, a Trocar Was Placed and Fixed to the Fascia with #0 Vicryl. Initial Pneumoperitoneum Showed No Evidence of Visceral Injury during Entry. Some Additions of the omentum to the anterior abdominal wall in the infraumbilical location were noted. Additional 5 mm trocars were placed in a epigastrium, right upper quadrant and right flank location. The gallbladder was retracted cephalad from the fundus, I then retracted the infundibulum in the inferolateral direction exposing the hepatocystic triangle. The peritoneum anterior to hepatocystic triangle was opened with electrocautery, this opening was carried on the medial and lateral direction to the edges of the liver and then on the sides of the gallbladder to allow for better exposure. With careful electrocautery and blunt dissection I was able to identify the cystic duct the cystic artery and elevate the lower third of the gallbladder from the liver bed, thus creating the critical view of safety. I proceeded to double clipped the cystic duct and artery proximal and single clipped distally and both were transected. The gallbladder was removed from the liver bed using electrocautery, during removal and arterial branch coming from the liver bed to the posterior wall of the gallbladder was identified, 2 clips were applied. In addition a small perforation was made on the posterior gallbladder wall, bile was completely removed from the gallbladder, no significant spillage was allowed to happen. After the specimen was removed from the abdomen via the umbilical trocar site in an Endo Catch bag I proceeded to evaluate the liver bed and clip was noted on the good position and liver bed was hemostatic and with no evidence of bile leak. The area was irrigated and clear water was aspirated. The umbilical trocar site was then closed using #0 Vicryl in a Tone-Pati suture passer this was done under direct visualization. I then proceeded to remove the epigastric and right upper quadrant trocars under rib visualization, the right flank trocar was used to evacuate the pneumoperitoneum and subsequently removed. The wounds were closed in layers using #4-0 Monocryl for the skin and Dermabond was applied. At the end of the procedure all counts were correct, the patient tolerated well the procedure and was transferred to the PACU in stable condition.
--- NOTE | 2024-01-13 13:22 | PC.NURSE ---
returned from surgery via stretcher at 1205.report received.pt is very sleepy.when attempt to arouse,pt opens eyes and thrashes about.recovery nurse mentioned that pt verbalized that she has a hard time waking up after anesthesia.vss.abd drsg is dry and intact.o2 on at 2l/nc.ccall love in reach.bed alarm on.
--- NOTE | 2024-01-13 13:31 | P.MISC_ITS ---
Miscellaneous Note Purpose of Documentation: Update on patient care Note: Patient was evaluated this afternoon, he is already awake and not having significant abdominal discomfort but appears to be still under some affect of the anesthesia, slightly confused and not fully alert. Under the circumstances I consider that it would not be safe for her to leave the hospital until he is completely walking and of all anesthesia related symptoms. Therefore we will k eep the patient in the hospital overnight for observation and she will be discharged early in the morning tomorrow
[2024-01-13] MEDS: acetaminophen 500 mg Tablet PO ×2 (14:34→20:12)
[2024-01-13] MEDS: pantoprazole 40 mg SDV IVP (14:34)
--- NOTE | 2024-01-13 17:24 | PC.NURSE ---
pt awoke at approx 1400.alert and oriented x 3.calm.pt states she lives alone.dr bardales stated it is okay if pt spends the night tonight.
[2024-01-14 00:25] VITALS: BP 156/83; PULSE 60; RESP 17; TEMP 36.3; O2SAT 94
[2024-01-14] MEDS: metroNIDAZOLE IV 500 MG/100 ML PREMIX 100 MG IV ×2 (01:01→07:29)
[2024-01-14] MEDS: acetaminophen 500 mg Tablet PO ×3 (01:01→14:05)
[2024-01-14] MEDS: sodium chloride 0.9% 1,000 ML 100 ML IV (01:04)
[2024-01-14] MEDS: ondansetron 2 mg/ML SDV 2 mL 4 MG IVP ×3 (01:45→12:46)
[2024-01-14 03:23] VITALS: BP 157/82; PULSE 70; RESP 16; TEMP 36.4; O2SAT 95
[2024-01-14] MEDS: levoFLOXacin 750 mg Tablet PO (06:14)
[2024-01-14] MEDS: pantoprazole 40 mg SDV IVP (07:35)
--- NOTE | 2024-01-14 07:45 | P.DS_ITS ---
Discharge Providers Date of Admission: 01/13/24 01:55 Date of Discharge: January 14, 2024 Attending Provider at Admission: Octavio Phelps MD Attending Provider at Discharge: Octavio Phelps MD Primary Care Provider: Melani Pedro MD Diagnoses at Discharge Discharge Diagnosis (1) Cholecystitis: Details from hospital stay: Is a 68-year-old female who presented to the hospital with acute cholecystitis, laparoscopic cholecystectomy was indicated. Patient was taken to the OR, cholecystectomy was done without complications. Patient was expected to be discharged in the postoperative period but she was still significantly somnolent and drowsy after anesthesia and therefore we decided to keep her overnight for observation to ensure that she is safe for transition home. This morning she is doing much better is awake and alert no significant abdominal pain no other complaints. She will transition to home and follow-up in my clinic in 2 weeks. Status: Acute Reason for Visit Reason for Visit: ABD PAIN Physical Exam GI: OTHER: Abdomen soft nontender nondistended, surgical incisions are covered with Dermabond. Discharge Data Studies Completed and Pending Completed Studies During Hospitalization Category Date Time Status CT abdomen pelvis w con* [id number] Urgent Cat Scan 01/12/24 23:29 Completed US gall bladder [id number] Stat Ultrasound 01/13/24 00:28 Completed Pending at discharge Category Date Time Status Pathology: Surgical [PTH] Routine Pth 01/13/24 10:31 Ordered Radiology Impressions Abdomen/Pelvis CT 01/12/24 23:29 IMPRESSION: 1. Mild gallbladder wall thickening, consider correlation with ultrasound. 2. Bilateral renal cysts, negative for follow-up advised. 3. Diverticulosis without diverticulitis. 4. Emphysematous changes. 5. Hepatic steatosis. COMMENTS: Consistent with the [employer]'s Incidental Findings Committee white paper (J Am Riki Radiol 2018): Any incidental renal lesion less than 1 cm or classified as too small to characterize, or any incidental cystic renal lesion characterized as simple-appearing, is likely benign. No follow-up imaging is recommended for these lesions per consensus recommendations based on imaging criteria. Gallbladder Ultrasound 01/13/24 00:28 IMPRESSION: Gallbladder sludge with wall thickening to 4 mm and pericholecystic edema, consistent with cholecystitis. Laboratory Results WBC 11.85 10^3/uL (3.29-11.43) H 01/12/24 23:25 RBC 3.73 10^6/uL (3.85-5.65) L 01/12/24 23:25 Hgb 11.10 g/dL (11.27-16.99) L 01/12/24 23:25 Hct 33.6 % (36-47) L 01/12/24 23:25 MCV 90.1 fl (85-98) 01/12/24 23:25 MCH 29.8 pg (27-33) 01/12/24 23: MCHC 33.0 g/dL (30-55) 01/12/24 23:25 RDW 13.9 % (12.1-15.1) 01/12/24 23:25 Plt Count 315 10^3/cmm (157-399) 01/12/24 23:25 MPV 10.5 fL (7.4-10.4) H 01/12/24 23:25 Neut % (Auto) 83.0 % 01/12/24 23:25 Lymph % (Auto) 10.5 % 01/12/24 23:25 [place] % (Auto) 5.1 % 01/12/24 23:25 Eos % (Auto) 0.4 % 01/12/24 23:25 Baso % (Auto) 0.6 % 01/12/24 23:25 Neut # (Auto) 9.82 10^3/uL (1.8-7.7) H 01/12/24 23:25 Lymph # (Auto) 1.3 10^3/uL (0.8-4.8) 01/12/24 23:25 [place]ata[place] # (Auto) 0.6 10^3/uL (0.2-0.9) 01/12/24 23:25 Eos # (Auto) 0.1 10^3/uL (0.0-0.8) 01/12/24 23:25 Baso # (Auto) 0.1 10^3/uL (0.0-0.1) 01/12/24 23:25 Nucleated RBC % (auto) 0 % 01/12/24 23:25 Nucleated RBCs # 0.0 /100WBC 01/12/24 23:25 Sodium 143 mmol/L (136-145) 01/12/24 23:25 Potassium 3.5 mmol/L (3.5-5.1) 01/12/24 23:25 Chloride 109 mmol/L (98-107) H 01/12/24 23:25 Carbon Dioxide 22 mmol/L (22-29) 01/12/24 23:25 Anion Gap 15.5 (5-19) 01/12/24 23:25 BUN 16 mg/dL (8-23) 01/12/24 23:25 Creatinine 0.9 mg/dL (0.5-0.9) 01/12/24 23:25 GFR Calculation 61.9 mL/min (90-130) L 01/12/24 23:25 Glucose 139 mg/dL (65-115) H 01/12/24 23:25 Calculated Osmolality 299 mOsm/kg (285-295) H 01/12/24 23:25 Calcium 8.9 mg/dL (8.5-10.5) 01/12/24 23:25 Total Bilirubin 0.2 mg/dL (0.15-1.2) 01/12/24 23:25 AST 22 U/L (0-32) 01/12/24 23:25 ALT 27 U/L (0-33) 01/12/24 23:25 Alkaline Phosphatase 83 U/L (35-105) 01/12/24 23:25 Total Protein 6.7 g/dL (6.6-8.7) 01/12/24 23:25 Albumin 4.0 g/dL (3.5-5.2) 01/12/24 23:25 Globulin 2.7 g/dL (1.3-4.6) 01/12/24 23:25 Lipase 19 U/L (13-60) 01/12/24 23:25 Urine Color Yellow (Yellow) 01/12/24 23:25 Urine Appearance Clear (CLEAR) 01/12/24 23:25 Urine pH 5 (5-7) 01/12/24 23:25 Ur Specific [place] 1.025 (1.005-1.030) 01/12/24 23:25 Urine Protein Neg (Negative) 01/12/24 23:25 Urine Glucose (UA) Trace (Normal) H 01/12/24 23:25 Urine Ketones 1+ (Negative) H 01/12/24 23:25 Urine Blood Neg (Negative) 01/12/24 23:25 Urine Nitrate Negative (Negative) 01/12/24 23:25 Urine Bilirubin Neg (Negative) 01/12/24 23:25 Urine Urobilinogen Neg mg/dL (Negative) 01/12/24 23:25 Ur Leukocyte Esterase Negative (Negative) 01/12/24 23:25 Vitals Last Vital Signs Temp 97.5 F L 01/14/24 03:23 Pulse 70 01/14/24 03:23 Resp 16 01/14/24 03:23 BP 157/82 01/14/24 03:23 Pulse Ox 95 01/14/24 03:23 O2 Del Method Room Air 01/14/24 03:23 O2 Flow Rate 3 01/13/24 12:00 Discharge Plan Discharge Patient Disposition: Home Condition: Stable Prescriptions: New meloxicam 7.5 mg tablet 7.5 mg PO DAILY 5 Days Qty: 5 0RF acetaminophen [Tylenol] 325 mg tablet 650 mg PO Q6H 5 Days Qty: 40 0RF Continued aspirin [Adult Low Dose Aspirin] 81 mg tablet,delayed release (DR/EC) 81 mg PO DAILY triamcinolone acetonide 0.1 % cream 1 applic topical BID PRN (Reason: itching) Qty: 454 0RF levothyroxine 25 mcg tablet 25 mcg PO DAILY 90 Days Qty: 90 2RF nitroglycerin 0.4 mg tablet, sublingual 0.4 mg sublingual Q5M PRN (Reason: chest pain) 30 Days Qty: 30 1RF Rx Instructions: do not exceed 3 doses per episode oxybutynin chloride 15 mg tablet extended release 24hr 15 mg PO QAM 90 Days Qty: 90 2RF pantoprazole 40 mg tablet,delayed release (DR/EC) 40 mg PO DAILY 90 Days Qty: 90 2RF sertraline [Zoloft] 25 mg tablet 25 mg PO QAM 90 Days Qty: 90 2RF (DME) glucometer testing kit See Rx Instructions .Route .MEDSUPPLY Qty: 1 0RF Rx Instructions: Glucometer testing kit, check blood sugars 3 times daily Lancets #100 Strips #100 Vitamin C 500 mg Tablet 500 mg PO DAILY Vitamin B-12 1,000 mcg Tablet Extended Release 1,000 mcg PO DAILY loperamide 2 mg Tablet 2 mg PO Q6H PRN (Reason: Diarrhea) diphenhydramine HCl 50 mg Capsule 50 mg PO TID PRN (Reason: Allergic Reaction) Discontinued potassium 99 mg Tablet 99 mg PO DAILY Discharge Orders: Discharge Order (Routine); Ordered 01/14/24 Ordered By: Octavio Phelps Referrals: Octavio Phelps MD [Physician] - ( We have notified your physician's clinic of the need for a follow-up appointment to be scheduled. If you have not heard from them within the next 2 business days, please call them directly. ) Melani Pedro MD [Primary Care Provider] - (We have notified your physician's clinic of the need for a follow-up appointment to be scheduled. If you have not heard from them within the next 2 business days, please call them directly. ) Discharge Diet: Advance as tolerated Discharge Activity: Limit activity as instructed Patient Instructions: Metronidazole (By mouth), Meloxicam (By mouth), Acute Wound Care (DC), Laparoscopic Cholecystectomy (GEN), Opioid Safety, Post Anesthesia Care Activity Restrictions/Additional Instructions: No heavy lifting for the next 4 to 6 weeks, walk is much as possible this will speed up your recovery. You can shower starting on Monday, let soap and water run over your wounds and then pat dry. Return to hospital for fever chills severe abdominal pain that is getting worse over time or purulence from your wounds. Discharge Attestations Time Spent in Discharge Care*: less than 30 min Quality Metrics Clinical Quality Measures [ No reported AMI, CVA or VTE this stay] Coding Level of Care Code Acute Code for Chg Fwd Diagnoses Cholecystitis K81.9
[2024-01-14 08:00] VITALS: BP 161/74; PULSE 63; RESP 18; TEMP 36.6; O2SAT 95
[2024-01-14 11:40] VITALS: BP 155/77; PULSE 70; RESP 18; TEMP 36.6; O2SAT 95
[2024-01-14] MEDS: ketorolac 30 mg/mL INJ 15 MG IVP (12:46)
--- NOTE | 2024-01-14 13:50 | PC.NURSE ---
pt has c/o nausea,dizziness,headache.states she does not feel ready to go home.bp stable.dr guerrier notified.extra zofran given along with toradol iv.will continue to observe
[2024-01-14 15:24] VITALS: BP 155/77; PULSE 70; RESP 18; TEMP 36.6; O2SAT 95
--- NOTE | 2024-01-14 16:41 | PC.NURSE ---
pt now denies nausea,dizziness.no vomiting.ate lunch w/o problem.discharge instructions given and explained.pt verb understanding of instructions.discharged via w/c to exit at this time.friend to drive pt home.pt's daughter is coming this evening to stay with pt
== END 2024-01-14 15:25 | disposition home or self-care (01) ==
LOC: ER 01-13 01:38 → MEDSURG 01-13 01:56
PROVIDERS: Physician Assistant; Admitting Provider Surgery; Emergency Provider Emergency Medicine; PCP Family Medicine; Visit Provider Surgery
PROC: 0FT44ZZ Resection of Gallbladder, Percutaneous Endoscopic Approach (ICD-10-PCS; CPT 47562; principal; 2024-01-13 08:30)
DX: K80.10 Calculus of gallbladder with chronic cholecystitis without obstruction (principal); I10 Essential (primary) hypertension; K21.9 Gastro-esophageal reflux disease without esophagitis; E11.9 Type 2 diabetes mellitus without complications; E78.5 Hyperlipidemia, unspecified; I25.10 Atherosclerotic heart disease of native coronary artery without angina pectoris; E07.9 Disorder of thyroid, unspecified; Z87.891 Personal history of nicotine dependence
CPT/HCPCS: 47562; 74177; 76705; 80053; 81003; 83690; 85025; 88304; 96365; 99285; C9113; G0378; J0131; J1100; J1170; J1885; J1956; J2405; J2704; J2710; J3010; J3490; J7030; Q9967

== ENCOUNTER → 2024-01-24 07:44 | Outpatient (BNVA) | payer MEDICARE, SELFPAY | PROVIDERS: PCP Family Medicine; Visit Provider Surgery | DX: Z98.890 Other specified postprocedural states (principal); Z90.49 Acquired absence of other specified parts of digestive tract | CPT/HCPCS: 99024 ==

== ENCOUNTER → 2024-05-06 09:05 | Outpatient (BNVA) | payer MEDICARE, SELFPAY | PROVIDERS: PCP Family Medicine; Visit Provider Nurse Practitioner Family | DX: R68.89 Other general symptoms and signs (principal); Z20.822 Contact with and (suspected) exposure to COVID-19 | CPT/HCPCS: 87400; 87426 ==

== ENCOUNTER → 2024-06-19 13:58 | Outpatient (BNVA) | payer MEDICARE, SELFPAY | PROVIDERS: PCP Family Medicine; Visit Provider Family Medicine | DX: M54.12 Radiculopathy, cervical region (principal); M25.78 Osteophyte, vertebrae; M25.511 Pain in right shoulder; M25.551 Pain in right hip; M25.561 Pain in right knee | CPT/HCPCS: 72040; 73030; 73502; 73562 ==

== ENCOUNTER → 2024-08-12 10:40 | Outpatient (BNVA) | payer MEDICARE, SELFPAY | PROVIDERS: PCP Family Medicine; Visit Provider Family Medicine | DX: E11.9 Type 2 diabetes mellitus without complications (principal); I10 Essential (primary) hypertension; E03.9 Hypothyroidism, unspecified; Z09 Encounter for follow-up examination after completed treatment for conditions other than malignant neoplasm; I65.29 Occlusion and stenosis of unspecified carotid artery; I25.10 Atherosclerotic heart disease of native coronary artery without angina pectoris; E78.2 Mixed hyperlipidemia; R93.1 Abnormal findings on diagnostic imaging of heart and coronary circulation; Z13.6 Encounter for screening for cardiovascular disorders; M19.011 Primary osteoarthritis, right shoulder; M25.551 Pain in right hip; M25.561 Pain in right knee; G89.29 Other chronic pain; M54.12 Radiculopathy, cervical region; I65.23 Occlusion and stenosis of bilateral carotid arteries; Z74.09 Other reduced mobility; Z78.9 Other specified health status | CPT/HCPCS: 80048; 83036; 84443 ==

== ENCOUNTER 2024-08-23 12:27 | Outpatient (CLI) | payer MEDICARE, SELFPAY ==
--- NOTE | 2024-08-23 13:15 | USCV_ITS ---
Miriam Moreno Age: 68 Gender: F : 1955 Exam Date: 08/23/2024 12:50 Ordering Phys: Melani Pedro MD Technologist: USR Exam Location: [facility] – [place] Indication: stenosis Risk Factors: Previous Vascular Surgery: Right Brachial BP: / Left Brachial BP: / Right Left Velocity (cm/s) Spectral Plaque Velocity (cm/s) Spectral Plaque Syst/Diast Broadening Syst/Diast Broadening 65.90/ 10.20 Prox CCA 62.90 / 14.50 92.90/ 27.20 Mid CCA 71.20 / 14.80 103.50/30.70 Distal CCA 61.30 / 18.10 84.80/ 22.70 Prox ICA 62.10 / 21.00 81.60/ 24.40 Mid ICA 55.50 / 15.90 70.00/ 24.30 Distal ICA 48.90 / 17.00 62.80 ECA 69.60 0.80 ICA/CCA 1.00 Antegrade Vertebral Antegrade 36.70/ 7.90 cm/s 38.20/ 7.20 cm/s Tri Subclavian Tri 113.2 121.0 0 0 FINDINGS Comparison: none available. No significant elevation of systolic or diastolic velocities. Waveforms are normal. Mixture of calcified and noncalcified plaque in the bifurcations. CONCLUSIONS Bilateral ICA stenosis less than 50%. Mild carotid atherosclerosis. Dr. Jacinda Suazo DO (Electronically Signed) Final Date: 23 August 2024 13:26 S
== END 2024-08-23 12:28 | disposition home or self-care (01) ==
PROVIDERS: PCP Family Medicine; Visit Provider Family Medicine
DX: Z09 Encounter for follow-up examination after completed treatment for conditions other than malignant neoplasm (principal); I10 Essential (primary) hypertension; I25.10 Atherosclerotic heart disease of native coronary artery without angina pectoris; E78.2 Mixed hyperlipidemia; E11.9 Type 2 diabetes mellitus without complications; R93.1 Abnormal findings on diagnostic imaging of heart and coronary circulation; Z13.6 Encounter for screening for cardiovascular disorders; I65.23 Occlusion and stenosis of bilateral carotid arteries
CPT/HCPCS: 93880

== ENCOUNTER → 2024-10-29 14:22 | Outpatient (BNVA) | payer MEDICARE, SELFPAY | PROVIDERS: PCP Family Medicine; Visit Provider Internal Medicine Cardiovascular Disease | DX: R07.9 Chest pain, unspecified (principal); R00.1 Bradycardia, unspecified | CPT/HCPCS: 93005 ==

== ENCOUNTER → 2025-02-13 09:15 | Outpatient (BNVA) | payer MEDICARE, SELFPAY | PROVIDERS: PCP Family Medicine; Visit Provider Family Medicine | DX: E03.9 Hypothyroidism, unspecified (principal); E78.2 Mixed hyperlipidemia; E11.9 Type 2 diabetes mellitus without complications | CPT/HCPCS: 80053; 80061; 83036; 84443 ==

== ENCOUNTER → 2025-05-20 12:05 | Outpatient (BNVA) | payer MEDICARE, SELFPAY | PROVIDERS: PCP Family Medicine; Visit Provider Nurse Practitioner Family | DX: I10 Essential (primary) hypertension (principal); I65.23 Occlusion and stenosis of bilateral carotid arteries; Z87.891 Personal history of nicotine dependence | CPT/HCPCS: 99214 ==